=== PATIENT | female | born 1950 | race Caucasian/White ===

== ENCOUNTER 2023-04-19 00:06 | Inpatient (IN) | payer MEDICARE, OTHER, SELFPAY ==
[2023-04-18 21:59] VITALS: BMI 15.0
[2023-04-18 22:09] VITALS: BP 128/93
--- NOTE | 2023-04-18 22:37 | ED.GENMED ---
History of Present Illness
General
Chief Complaint: Breathing Problem
Source: patient and family
Exam Limitations: clinical condition and altered mental status
Time Seen by Provider: 04/18/23 22:20
Nursing documentation reviewed up to this point in time: agreed with
Travel History
Have you had any contact with someone who has COVID-19?: No
Do you have any symptoms of coronavirus? Fever > 100 degrees, chills, cough, shortness of breath, sore throat, loss of taste or smell, muscle aches, or headache?: No
History of Present Illness
History of Present Illness:
72-year-old female from [facility] facility presents with cough shortness of breath decreased p.o. intake pulse ox 90% on room air apparently was agitated earlier given Ativan, here she is lethargic arousable audibly wheezing companied by her
daughter is offering history has been admitted to [facility] for about 10 days previously sent to [facility]
Past History
Past History
ED Past Medical History: COPD and Other (Rheumatoid arthritis on Embrel)
ED Past Surgical History: and Orthopedic
Social History
Tobacco: Former smoker
Alcohol: None
Drug: None
Living: alone
Review of Systems
Review of Systems
Allergies reviewed?: Yes
Unable to obtain full review of systems at this time due to: due to acuity
Other source history: family
All Other Systems: Not applicable
Phy Exam
Physical Exam
Physical Exam:
Physical Exam
General: Elderly female lethargic audibly wheeze
Neck: Dry lip
Heart: Tachycardia
Lungs: Wheeze fair air movement
Abdomen: Nontender
Neuro: Lethargic localize the pain.
Skin: no rash
Psychiatric: Unable to assess
Extremities: no edema.
Scores
Heart Failure Risk
Heart Failure Risk Score: Not Applicable
Course
Orders/Labs/Results
Orders:
Orders
04/18/23 22:08
EKG- Treatment ONCE
04/18/23 22:35
Cardiac Monitoring- Treatment ONCE
IV Insert/Care/Rem.- Treatment PRN
0.9% Sodium Chloride 250 ml [Nss] 250 ml IV BOLUS
Dexamethasone Sod Phosphate [Decadron] 10 mg IV NOW STA
Ipratropium/Albuterol Sulfate [Duoneb] 3 ml INHALATION R NOW ONE
Pulse Ox/cont/shift [RESP] Stat
Quantity: 1
04/18/23 22:36
CR Chest Portable - 1 View Urgent
Comment:
Reason For Exam: sob
Reason Study Needs to be Portable: Unable to Transport
04/18/23 22:39
COVID-19 Antigen Urgent
Source: Nasal Swab
Complete Blood Count/With Diff Urgent
Comprehensive Metabolic Panel Urgent
Troponin I Urgent
Influenza A+B Rapid Molecular Urgent
STAR Source: Nasal Swab
Specimen Description:
04/18/23 23:05
NT-proBNP Urgent
Abnormal Lab Results
04/18/23
22:39
MCV 80.9 L fL
(81.0-99.0)
RDW 15.1 H %
(11.5-14.5)
Absolute Lymphs (auto) 0.8 L 10^3/uL
(1.2-3.4)
Absolute Monos (auto) 0.8 H 10^3/uL
(0.1-0.6)
Neutrophils % 77.6 H %
(42.2-75.2)
Lymphocytes % 11.1 L %
(20.5-51.1)
Monocytes % 10.2 H %
(1.7-9.3)
Sodium 133 L mmol/L
(135-145)
BUN 23 H mg/dl
(7-17)
Creatinine 0.4 L mg/dL
(0.6-1.0)
Alkaline Phosphatase 208 H U/L
(38-126)
04/18/23 22:39
04/18/23 22:39
Vital Signs
Initial and Last Documented VS:
Initial Vital Signs
Temp Pulse Resp BP Pulse Ox
98.2 F 95 25 128/93 94
04/18/23 22:09 04/18/23 22:09 04/18/23 22:09 04/18/23 22:09 04/18/23 22:09
Last Documented Vital Signs
Temp Pulse Resp BP Pulse Ox
97.7 F 86 16 121/79 95
04/21/23 14:52 04/21/23 19:38 04/21/23 19:38 04/21/23 18:14 04/21/23 19:38
MDM/Problems Addressed
Differential Diagnosis Includes:
COPD pneumonia heart failure pneumothorax overmedication hypercarbia
MDM/Problems Addressed:
Shortness of breath
Chronic conditions affecting care: COPD
Acute Exacerbation and/or Progression of Chronic Illness: COPD
*Pulse Oximetry
Patient hypoxic: yes
*EKG
Interpreted by ED Provider?: Yes
Interpretation: abnormal
Heart Rate: 110
Rate: normal
Ischemia: non-specific ST changes
*Cable Tool Operator Interpretation
Rate: tachycardiac
Interpretation: normal
Heart Rate: 104
Rhythm: sinus
*Critical Care Note
Total Time (30-74mins, 75-104mins- exclusive of procedures): 15
ED Attending Note
-
Portions of this chart may have been created with voice recognition software.� Occasional wrong word or��sound alike� substitutions may have occurred due to the inherent limitations of voice recognition software.
Discharge Plan
Departure
Patient Disposition: Admit
Date of Disposition: 04/18/23
Time of Disposition: 23:46
Admit to: Med/Surg
Presentation/result/management discussed w/ accepting MD/DO: Hospitalist
Patient with high blood pressure during this ER visit?: No
Condition: Fair
Covid-19: Not Applicable
Discharge Problem:
COPD exacerbation, Acute hypoxic respiratory failure, Moderate protein-calorie malnutrition, Delirium due to known physiological condition
Interventions
Interventions:
*Risk Screen - Suicide Last Done: 04/19/23 02:03
*General Assessment Last Done: 04/18/23 22:09
*Neglect/Abuse Screening Last Done: 04/18/23 22:09
ED- Fall Risk Assessment Last Done: 04/18/23 23:47
*ED COVID-19 Vaccine History Last Done: 04/19/23 00:02
*Nursing Disposition Last Done: 04/19/23 01:04
ED- Cardiac Assessment Last Done: 04/18/23 23:20
ED- Pulmonary Assessment Last Done: 04/18/23 23:20
Discharge Date and Time
Discharge Date/Time: 04/19/23 01:04
[2023-04-18 22:46] LABS: % Basophils 0.3 % (0-2); % Eosinophils 0.5 % (0-6); % Immature Granulocytes 0.3 % (0-0.5); % Lymphocytes 11.1 % (20.5-51.1); % Monocytes 10.2 % (1.7-9.3); % Neutrophils 77.6 % (42.2-75.2); Absolute Lymphocytes 0.8 10^3/uL (1.2-3.4); Absolute Monocytes 0.8 10^3/uL (0.1-0.6); Absolute Neutrophils 5.9 10^3/uL (1.4-6.5); Hematocrit 41.1 % (37.0-47.0); Hemoglobin 13.7 g/dL (12.0-16.0); Mean Corp Hgb Conc. 33.3 g/dL (33.0-37.0); Mean Corpuscular Volume 80.9 fL (81.0-99.0); Mean Platelet Volume 9.1 fL (7.4-10.4); Nucleated Red Blood Cells % 0 %; Platelet Count 361 10^3/uL (130-400); Red Blood Cell Count 5.08 10^6/uL (4.20-5.40); Red Cell Dist. Width 15.1 % (11.5-14.5); White Blood Cell Count 7.6 10^3/uL (4.8-10.8)
[2023-04-18 23:00] LABS: ALT (SGPT) 24 U/L (0-35); AST (SGOT) 28 U/L (14-36); Albumin 3.8 g/dl (3.5-5.0); Alkaline Phosphatase 208 U/L (38-126); Blood Urea Nitrogen 23 mg/dl (7-17); COVID-19 Antigen Negative (Negative); Calcium 8.7 mg/dl (8.4-10.2); Carbon Dioxide 25 mmol/L (22-30); Chloride 102 mmol/L (98-107); Estimated Creatinine Clearance 45 ml/min; Glucose 98 mg/dl (70-99); Sodium 133 mmol/L (135-145); Total Bilirubin 0.5 mg/dl (0.2-1.3); Total Protein 6.9 g/dl (6.3-8.2); eGFR > 60.00
[2023-04-18] MEDS: DUONEB 3 ML INHALATION (23:02)
[2023-04-18] MEDS: DECADRON 10 MG IV (23:02)
[2023-04-18 23:07] LABS: Troponin I < 0.012 ng/ml
[2023-04-18] MEDS: NSS 250 IV (23:34)
[2023-04-18 23:36] LABS: NT-proBNP 120 pg/ml
[2023-04-19] VITALS (14 sets, daily range): BP systolic 96–156; BP diastolic 55–98; PULSE 92–93; O2SAT 93–97; BMI 15.8; BMI 15.6
--- NOTE | 2023-04-19 00:01 | HPS.HSE ---
Family Physician
-
Family Physician: Trell Gifford
Chief Complaint
-
cough and SoB. Poor POs and lethargy
History of Present Illness
72F fron [facility] , COPD, recent admission pw cough and SoB. Poor POs.
intake pulse ox 90% on room air apparently was agitated earlier given Ativan
At ER she is lethargic arousable plus audibly wheezing
Medical History
Past Medical History
Past Medical History: Reports COPD and Other (Rheumatoid arthritis on Embrel))
Past Surgical History: Reports Gynocological (C section ) and Orthopedic
Social History
Tobacco: Former Smoker
Alcohol: None
Drug: None
Family History
Family History: Not pertinent
Allergies / Home Medications
Allergies reflects when Allergies were last updated in [employer].
Home Medications with original date entered in [employer]
Allergy/Medication List:
Allergies
Allergy/AdvReac Type Severity Reaction Status Date / Time
No Known Allergies Allergy Verified 08/07/22 16:46
Home Medications
budesonide 160 mcg-glycopyr 9 mcg-formot 4.8 mcg/actuation HFA inhaler (Breztri Aerosphere) 2 inh inhalation R BID Lung/Breathing Issues 01/29/23
calcium carbonate 600 mg calcium (1,500 mg) tablet (Calcium) 1,200 mg PO DAILY Supplement 01/29/23
cevimeline 30 mg capsule (Evoxac) 1 cap PO HS PRN dry mouth 01/29/23
cholecalciferol (vitamin D3) 50 mcg (2,000 unit) tablet 50 mcg PO DAILY Supplement 01/29/23
magnesium 250 mg tablet 250 mg PO DAILY Supplement 01/29/23
ferrous sulfate 325 mg (65 mg iron) tablet,delayed release 325 mg PO DAILY supplement 03/25/23
polyethylene glycol 3350 17 gram oral powder packet (Miralax) 17 g PO DAILY PRN constipation 03/25/23
sennosides 8.6 mg tablet (senna) 17.2 mg PO DAILY PRN constipation 03/25/23
ibuprofen 400 mg tablet 400 mg PO Q6HPRN PRN mild pain #14 tabs 03/30/23
acetaminophen 325 mg tablet 650 mg PO Q6H PRN mild pain/temp>100 04/18/23
azithromycin 500 mg tablet 500 mg PO DAILY 04/18/23
bisacodyl 10 mg rectal suppository (Dulcolax (bisacodyl)) 10 mg RI DAILY PRN if mom ineffective 04/18/23
docusate sodium 100 mg capsule 100 mg PO BID 04/18/23
ipratropium 20 mcg-albuterol 100 mcg/actuation mist for inhalation (Combivent Respimat) 2 puff inhalation R Q6 PRN copd 04/18/23
lorazepam 0.5 mg tablet 0.5 mg PO HS 04/18/23
magnesium hydroxide 400 mg/5 mL oral suspension (Milk of Magnesia) 30 ml PO DAILY PRN if no bm x 3 days 04/18/23
prednisone 20 mg tablet 40 mg PO DAILY 04/18/23
sodium phosphates 19 gram-7 gram/118 mL enema (Fleet Enema) 118 ml RI DAILY PRN if dulcolax ineffective 04/18/23
tramadol 50 mg tablet 50 mg PO Q8H PRN moderate pain 04/18/23
Review of Systems
-
Constitutional: Reports No Symptoms
EENT: Reports No Symptoms
Respiratory: Reports See HPI
Cardiac: Reports No Symptoms
Abdomen/GI: Reports No Symptoms
: Reports No Symptoms
Musculoskeletal: Reports No Symptoms
Skin: Reports No Symptoms
Neurological: Reports No Symptoms
Endocrine: Reports No Symptoms
Hematologic/Lymphatic: Reports No Symptoms
Psych: Reports No Symptoms
Physical Exam
Vital Signs
Vital Signs
Temp Pulse Resp BP Pulse Ox
98.2 F 93 19 128/93 98
04/18/23 22:09 04/18/23 23:46 04/18/23 23:46 04/18/23 22:09 04/18/23 23:46
Physical Exam
General: Other (see below )
Laboratory Results
-
04/18/23 22:39
04/18/23 22:39
Laboratory Results
pH Cancelled 04/18/23 22:35
pCO2 Cancelled 04/18/23 22:35
pO2 Cancelled 04/18/23 22:35
HCO3 Cancelled 04/18/23 22:35
Total Bilirubin 0.5 mg/dl (0.2-1.3) 04/18/23 22:39
AST 28 U/L (14-36) 04/18/23 22:39
ALT 24 U/L (0-35) 04/18/23 22:39
Alkaline Phosphatase 208 U/L (38-126) H 04/18/23 22:39
Troponin I < 0.012 ng/ml 04/18/23 22:39
Data Reviewed
-
CT Scan: Other (pending )
Lab Data: Labs Reviewed by me
Old Records: Reviewed
Impression/Plan
-
Reviewed VS: afebrile tachypneic low 20s POx 94% --> 98 on 2 L NCO2
PE
Gen:looks chronically ill and malnourished
HEENT: no scleral icterus
Neck: supple
Lungs: symmetric AE, wheezes
Cor: ST, RRR S1 S2
Abdomen: soft NT NG
CADDIE SUPERVISOR: lethargic , arousable
MS: no edema
Psych: Normal mood and affect.
Data
unremarkable CBC
Na 133
CO2 25
nl Cr nl eGFR
NEG TPNI
proBNP 120
Pending ABG:
NEG Covid Ag
Pending final CXR report
Last hospitalist admission: 03/25/23 - 04/04/23
DC diagnoses:
Acute hypoxemic respiratory insufficiency due to acute chronic obstructive pulmonary disease exacerbation
Acute sacral fracture after a mechanical fall
Acute delirium/psychosis
Acute toxic encephalopathy due to steroids and narcotics
Secondary diagnoses:
Chronic T9 compression fracture
Reactive leukocytosis
Chronic anemia
Rheumatoid arthritis
Sjogren's syndrome
ASSESSMENT & PLAN
Lethargy suspect due to Ativan @ OSH
Eval for other etiology for lethargic TME
- pending ABG
- fall precaution
- NPO for now for aspiration precaution
- Nursing to screen for POs
AE COPD e with mild acute hypoxic RI
+ Wheeze on arrival per ER
- pending ABG
- IV Decadron 4mg q8h
- DuoNebs qid and PRN
- O2 to keep Pox > 93 %
- Pul consult
Recent Sacral fracture after a mechanical fall/old T9 compression fracture:
- Held ibuprofen alternated with tramadol due to AMS
Other problems:
Rheumatoid arthritis/Sjogren's syndrome: Follow-up with rheumatology as outpatient
DVT Px: LMWH
Code: DNR confirmed by daughter at bed side
IP TLM
[2023-04-19] MEDS: MORPHINE SULFATE 2 MG IV (00:09)
--- NOTE | 2023-04-19 02:10 | PTCARENOTE ---
Addendum entered by Zuleima Domingo RN 04/19/23 05:09:
Yohana woke up extremely restless, taking off gown and oxygen. Pt appeared more wheezy compared to earlier in the shift and in distress. Repositioned in bed, placed NC back in nose. Support given, coached pt on slowing her breathing. RT made aware
and provided duoneb. Pt appears more comfortable at this time. Re-oriented to surroundings and use of call bartholomew. Pt needs frequent reminders industrial relations commissioner bartholomew use.
Original Note:
Patient arrived to room 3352 around 0100. Transferred over to bed and placed on IMU tele monitor and continuous sp02. Sp02 >93% on 2L. CHG done. Pt is drowsy but arousable and becomes restless when woken up. Pt does not follow commands or opens
eyes. In no apparent distress, her respirations are even and unlabored. Left lateral foot with small abrasion and redness, skin is otherwise intact. Pt has large hemorrhoids and possibly rectal prolapse. Daughter, Elda, at bedside to answer any
questions; Elda is first contact and POA. States pt was admitted here for 10 days recently and sent to [facility] rehab and was supposed to be discharged from [facility] today. Last admission pt had delirium. Elda also reports pt has not been
eating and has not sleep well in the last month. All questions answered. Bed alarm set, call bartholomew within reach.
[2023-04-19 03:36] LABS: % Basophils 0.1 % (0-2); % Immature Granulocytes 0.1 % (0-0.5); % Lymphocytes 5.2 % (20.5-51.1); % Monocytes 1.9 % (1.7-9.3); % Neutrophils 92.7 % (42.2-75.2); Absolute Lymphocytes 0.4 10^3/uL (1.2-3.4); Absolute Monocytes 0.1 10^3/uL (0.1-0.6); Absolute Neutrophils 6.2 10^3/uL (1.4-6.5); Hematocrit 37.9 % (37.0-47.0); Hemoglobin 12.5 g/dL (12.0-16.0); Mean Corpuscular Hgb 26.9 pg (27.0-31.0); Mean Corpuscular Volume 81.7 fL (81.0-99.0); Mean Platelet Volume 8.8 fL (7.4-10.4); Nucleated Red Blood Cells % 0 %; Platelet Count 313 10^3/uL (130-400); Red Blood Cell Count 4.64 10^6/uL (4.20-5.40); White Blood Cell Count 6.7 10^3/uL (4.8-10.8)
[2023-04-19 03:37] LABS: Venous Blood Gas B.E. 0.5 mmol/L (-4 to +4); Venous Blood Gas HCO3 24.6 mmol/L (22-27); Venous Blood Gas pCO2 37 mmHg (35-48); Venous Blood Gas pH 7.43 (7.32-7.43); Venous Blood Gas pO2 165 mmHg (30-50)
[2023-04-19 03:47] LABS: Venous Blood Gas O2 Sat % 99.5 %
[2023-04-19 04:11] LABS: Blood Urea Nitrogen 22 mg/dl (7-17); Calcium 8.4 mg/dl (8.4-10.2); Carbon Dioxide 22 mmol/L (22-30); Chloride 104 mmol/L (98-107); Estimated Creatinine Clearance 43 ml/min; Glucose 137 mg/dl (70-99); Potassium 4.1 mmol/L (3.5-5.1); Sodium 136 mmol/L (135-145); eGFR > 60.00
[2023-04-19] MEDS: DUONEB 3 ML INH ×2 (04:44→11:44)
[2023-04-19] MEDS: DECADRON 4 MG IV (06:25)
[2023-04-19] MEDS: DUONEB INH ×2 (07:55→07:57)
--- NOTE | 2023-04-19 09:00 | CON.PUL ---
Consultation
Consultation Request
Date/Time Consultation Requested: 04-19-23
Date/Time Consultation Performed: 04-19-23
Requesting Provider: Hospitalist
Performing Provider: Dr Hopson
Reason for Consultation: dyspnea
Medical History
-
Chief Complaint: dyspnea
History of Present Illness:
Mrs Yohana Hoffman is a 72/W readm 04-18 from [place] with dyspnea, decreased oral intake, POx 90% RA and agitation. Given ativan earlier, at ER, lethargic but arousable, audible wheezing. Recently adm [facility] 03-25 to for mild AECOPD, responded to CS,
BDs, O2, sustained acute psychosis deemed secondary to CS in setting of baseline mild dementia, of note, recent fall seen at ER 03-23, R hip pain but no fracture identified on Xrays, d/c on tramadol, due to ongoing pain was seen by ortho during adm
and pelvis CT showed nondisplaced bilateral zone 1 sacral ala fracture and questionable impaction/compression S2 (rec wt bearing as tolerated, no need for surgery)
EMS report showed no signs of resp distress, POx 95% on RA at time of their evaluation
At time of visit on O2 2L, POx 95%, in no resp distress
Past Medical History
Past Medical History: Other (see A&P for PMH/PSH)
Social History
Tobacco: Former Smoker
Alcohol: None
Drug: None
Personal:
Living: With Family and Usp (currently at [place])
Employment: Not Employed
Family History
Family History: Reviewed & Not Pertinent
Allergies / Home Medications
Allergies
Allergy/AdvReac Type Severity Reaction Status Date / Time
No Known Allergies Allergy Verified 08/07/22 16:46
Home Medications
Medication Instructions Recorded Confirmed Last Taken Type
budesonide 160 mcg-glycopyr 9 2 inh inhalation R BID 01/29/23 04/18/23 Unknown History
mcg-formot 4.8 mcg/actuation HFA Lung/Breathing Issues
inhaler (Breztri Aerosphere)
calcium carbonate 600 mg calcium 1,200 mg PO DAILY Supplement 01/29/23 04/18/23 Unknown History
(1,500 mg) tablet (Calcium)
cevimeline 30 mg capsule (Evoxac) 1 cap PO HS PRN dry mouth 01/29/23 04/18/23 Unknown History
cholecalciferol (vitamin D3) 50 50 mcg PO DAILY Supplement 01/29/23 04/18/23 Unknown History
mcg (2,000 unit) tablet
magnesium 250 mg tablet 250 mg PO DAILY Supplement 01/29/23 04/18/23 Unknown History
ferrous sulfate 325 mg (65 mg 325 mg PO DAILY supplement 03/25/23 04/18/23 Unknown History
iron) tablet,delayed release
polyethylene glycol 3350 17 gram 17 g PO DAILY PRN constipation 03/25/23 04/18/23 Unknown History
oral powder packet (Miralax)
sennosides 8.6 mg tablet (senna) 17.2 mg PO DAILY PRN constipation 03/25/23 04/18/23 Unknown History
ibuprofen 400 mg tablet 400 mg PO Q6HPRN PRN mild pain #14 03/30/23 04/18/23 Unknown Rx
tabs
acetaminophen 325 mg tablet 650 mg PO Q6H PRN mild 04/18/23 04/18/23 Unknown History
pain/temp>100
azithromycin 500 mg tablet 500 mg PO DAILY 04/18/23 04/18/23 Unknown History
bisacodyl 10 mg rectal suppository 10 mg MA DAILY PRN if mom 04/18/23 04/18/23 Unknown History
(Dulcolax (bisacodyl)) ineffective
docusate sodium 100 mg capsule 100 mg PO BID 04/18/23 04/18/23 Unknown History
ipratropium 20 mcg-albuterol 100 2 puff inhalation R Q6 PRN copd 04/18/23 04/18/23 Unknown History
mcg/actuation mist for inhalation
(Combivent Respimat)
lorazepam 0.5 mg tablet 0.5 mg PO HS 04/18/23 04/18/23 Unknown History
magnesium hydroxide 400 mg/5 mL 30 ml PO DAILY PRN if no bm x 3 04/18/23 04/18/23 Unknown History
oral suspension (Milk of Magnesia) days
prednisone 20 mg tablet 40 mg PO DAILY 04/18/23 04/18/23 Unknown History
sodium phosphates 19 gram-7 118 ml MA DAILY PRN if dulcolax 04/18/23 04/18/23 Unknown History
gram/118 mL enema (Fleet Enema) ineffective
tramadol 50 mg tablet 50 mg PO Q8H PRN moderate pain 04/18/23 04/18/23 Unknown History
Review of Systems
-
Unable to Obtain full review of systems at this time due to: Other (mildly disoriented)
History Source: Patient
All other systems: Negative unless noted
Respiratory: Cough (n) and Trouble Breathing
Musculoskeletal: Other (back pain)
Vitals / Labs / Diagnostic Testing
Vital Signs
Temp Pulse Resp BP Pulse Ox
98 F 86 19 132/66 97
04/19/23 07:30 04/19/23 06:15 04/19/23 06:15 04/19/23 06:00 04/19/23 06:15
Lab Data
04/19/23 03:20
04/19/23 03:20
Laboratory Results
04/18/23
22:35
pH Cancelled
pCO2 Cancelled
pO2 Cancelled
HCO3 Cancelled
O2 Delivery Level Cancelled
Microbiology
04/18/23 22:39 Nasal Swab Influenza Types A & B (BRENDA) - Final
Negative for Influenza A & B, NAAT
Negative results must be combined with clinical observations
and patient history.
Nucleic Acid Amplification test (NAAT)performed on the
[employer] platform.
Diagnostic Testing:
Physical Exam
-
HEENT: Normocephalic and Moist Mucous Membranes
Cardiovascular: Regular Rhythm, Murmur (n), Peripheral Edema, Calf Tenderness and JVD
Respiratory: Clear and Non-Labored Respirations
GI: Soft, Non Distended and Non Tender
Neurology: Awake, Oriented (partially) and No Motor Deficits
Skin: Dry
General: Respiratory Distress (n)
Assessment
-
Assessment:
Mrs Yohana Hoffman is a 72/W readm 04-18 from [place] with dyspnea, decreased oral intake, POx 90% RA and agitation. Given ativan earlier, at ER, lethargic but arousable, audible wheezing. Recently adm 03-25 to for mild AECOPD, responded to CS,
BDs, O2, sustained acute psychosis deemed secondary to CS in setting of baseline mild dementia, of note, recent fall seen at ER 03-23, R hip pain but no fracture identified on Xrays, d/c on tramadol, due to ongoing pain was seen by ortho during adm
and pelvis CT showed nondisplaced bilateral zone 1 sacral ala fracture and questionable impaction/compression S2 (rec wt bearing as tolerated, no need for surgery)
Impression:
Acute respiratory failure
AECOPD, apparently mild
COVID/flu negative
Conditions GRINDER OUTSIDE DIAMETER:
AECOPD adm mid Mar 2023, also recent fall leading to nondisplaced bilateral zone 1 sacral ala fracture and questionable impaction/compression S2 (seen by ortho, rec wt bearing as tolerated, no surgery rec). Mild AECOPD responded to course of
steroids, BDs and O2 (O2 weaned off upon d/c). Sustained acute delirium/psychosis mostly due to CS though has baseline dementia with intermittent agitation and delirium at home per daughter's report
COPD, on breztri, combivent, DNs
Severe emphysema
RA on golimumab. Past use of etanercept (enbrel)
Sjogren syndrome: on cevimeline for xerostomia
OP on denosumab (prolia)
Mild dementia, intermittent agitation and delirium
C section x2
Carpal tunnel surgery
L JOSEFINA
TB exposure as a child
Former smoker: 1 ppd for 25 y, quit in 2013
Plan:
Continue O2 protocol
Currently on 2L, POx 98%
Asp precs
Appears in no resp distress, presents no cough during time of interview, no wheezing on auscultation
Able to speak in full sentences, mildly disoriented
EMS report showed no signs of resp distress, POx 95% on RA at time of their evaluation
Rec to d/c oral azithromycin
Rec to change dexam 4 mg IV q8 to prednisone short course as appears in no resp distress
Noted h/o steroid induced psychosis
Continue DNs, change to prn for now
Spiriva, symbicort (return to [facility] upon d/c)
Baseline mild dementia with intermittent delirium at home
Follow with Dr Barker on routine basis -last visit with Alysa Carvre in May 2021
Diagnostic tests:
CXR 04-18-23: portable, lordotic, no gross infiltrates, emphysematous jesus
Chest CTA 03-25-23
IMPRESSION:
1. SEVERE BILATERAL CENTRILOBULAR EMPHYSEMA.
2. Mild scarring in both lungs which appears unchanged.
3. Moderate calcific atherosclerotic plaque in the left coronary artery.
4. Small hiatal hernia.
5. Chronic superior endplate fracture of T9 with moderate loss of vertebral body height.
Outpatient PFTs:
[facility]:
Performed 05/2021
FEV1/FVC: 35 (79% predicted)
FEV1: 0.78L (47% predicted) --> 0.81L (48% predicted with BD, which is a +4% change)
FVC: 2.25L (108% predicted) --> 2.41L (114% predicted with BD, which is a +7% change)
T%
RV: 156%
DLco: 31%
VA: 76%
DLco/VA: 40%
[2023-04-19] MEDS: ZITHROMAX 500 MG PO (09:17)
[2023-04-19] MEDS: COLACE 100 MG PO (09:17)
[2023-04-19] MEDS: RISPERDAL M-TAB (ORALLY DISINTEGRATING) 1 MG PO (10:54)
--- NOTE | 2023-04-19 12:50 | PTCARENOTE ---
Pt initially drowsy but conversant, Aox1. Pt becoming more awake throughout the morning. Pt then setting off bed alarm, this RN found pt out of bed tangled in wires. Pt yelling at staff and throwing equipment- stating she is leaving. Able to de
escalate and re orient pt after some time. Helped back into bed. TT to Dr. Molina to notify him of situation, order received for one time dose of Risperdal- given as ordered, see MAR. Pt resting at this time.
--- NOTE | 2023-04-19 13:00 | CM ---
CM spoke with dtr/KRYSTIN Schroeder
Pt typically resides with her dtr in a guest home, 1 floor with 2 [place]
Prior to Feb 2023, pt was independent without any DMEs
Pt was at [facility] for rehab in Feb 2023
Pt recent admitted to in Mar of this year and dc to [facility], pt was still at SNF for rehab care
PCP- Bharati Hassan
Rx- [place]
Per dtr, plan is for return to home, does not want SNF on dc
She is hiring 24/7 caregivers and already in the works with a provider
Aware that VN and DMEs can be set up as needed
Discharge Disposition- home with VN, possible DME and 24/7 caregivers
--- NOTE | 2023-04-19 13:49 | W.PN.HOSP.TC ---
Today's Communication/Plan
-
continue steroids
Risperdal concentrate orderd
psych eval
Assessment / Plan
Assessment / Plan
1. COPD flare up
Acute hypoxic respite insufficiency
-Patient wheezing on exam in ER, continue to do so today as well
-Able to be weaned off of oxygen
-Patient have behavioral problems and was declining oral prednisone, switch back to IV Decadron 4 mg every 12 hours
-Continue nebulizer therapy
2. Mild dementia with behavioral problems
-Patient agitated and required remote sitter in place
-Was given Risperdal sublingual yesterday, provided liquid concentrate Risperdal today
-Psychiatry asked to follow and help
3. Bloating/dyspepsia
-Reported per daughter, maintained on gasonex/PPI
History of rheumatoid arthritis on golimumab
History of Sjogren's syndrome
Osteoporosis
History of left hip arthroplasty
Former smoker
DVT prophylax - lovenox
Full code
Anticipated Discharge: Within 24 hours
Subjective/Interval History
-
Date of Service: April 19, 2023
Patient was agitated overnight, resting comfortably right now
Not on oxygen
Objective Data
-
Labs:
Laboratory Results
04/19/23
03:20
WBC 6.7
Hgb 12.5
Hct 37.9
Plt Count 313
Sodium 136
Potassium 4.1
Chloride 104
Carbon Dioxide 22
BUN 22 H
Creatinine 0.4 L
Glucose 137 H
Calcium 8.4
Vital Signs:
Vital Signs
Temp Pulse Resp BP Pulse Ox
98.1 F 72 16 130/81 98
04/19/23 11:00 04/19/23 11:49 04/19/23 11:49 04/19/23 10:00 04/19/23 11:49
Review of Systems
-
Unable to obtain full review of systems at this time due to: Dementia
Physical Exam
-
General: No Apparent Distress
HEENT: Negative Oxygen
Respiratory: Rhonchi; Negative Wheezes
Cardiac: Regular Rhythm and S1/S2; Negative Murmur
GI: Soft, Nontender and Nondistended
Neuro: Awake, Alert and AO x 3
Psych: Calm
--- NOTE | 2023-04-19 15:45 | PTOTSP ---
Dysphagia Evaluation
Oral and pharyngeal stages of swallowing suspected to be grossly WFL based on clinical bedside swallowing evaluation completed this date. No signs concerning for aspiration observed.
Patient's family denied any known history of dysphagia. Patient does have risk factors (i.e., COPD, dementia). Chest x-ray without signs of PNA this admission.
Recommend:
1. Regular, Thin Liquids
2. General aspiration precautions including slow rate and breaks for breathing given COPD
3. Medications as best tolerated
4. No further dysphagia therapy warranted. Please reconsult as appropriate.
--- NOTE | 2023-04-19 16:50 | PTCARENOTE ---
Pt downgraded to med surg. Report to receiving RN. Transferred to 335-1 with belongings, daughter at bedside.
[2023-04-19] MEDS: ROBITUSSIN DM 10 ML PO (16:58)
[2023-04-19] MEDS: LOVENOX 30 MG SC (16:58)
[2023-04-19] MEDS: VENTOLIN NEBULES 2.5 MG INH ×2 (17:03→23:27)
[2023-04-19] MEDS: ADVAIR HFA 115/21 MCG INHALER INH (20:10)
[2023-04-19] MEDS: COLACE PO (20:55)
[2023-04-20] MEDS: MORPHINE SULFATE 1 MG IV (00:02)
[2023-04-20 07:00] VITALS: BP 131/78
[2023-04-20] MEDS: MIRALAX PO (07:56)
[2023-04-20] MEDS: COLACE PO (07:56)
[2023-04-20] MEDS: ADVAIR HFA 115/21 MCG INHALER 2 PUFF INH (08:00)
[2023-04-20] MEDS: RISPERDAL ORAL SOLUTION 1 MG PO (09:04)
[2023-04-20] MEDS: DECADRON 4 MG IV ×2 (11:07→19:51)
--- NOTE | 2023-04-20 11:12 | CM ---
Addendum entered by Yohana Collier 04/20/23 12:04:
Per Tania patient is accepted by [facility] and patient daughter is working with [employer] for 03/10 [employer]. CM will continue to follow for discharge planning needs.
Plan; home with ; [facility] and home health aides; will need to confirm [employer] agency
Original Note:
Patient known to [facility], pending per Tania from [facility].
[2023-04-20 11:49] VITALS: BP 116/69; PULSE 98; O2SAT 94
[2023-04-20] MEDS: PROTONIX 40 MG PO (12:24)
[2023-04-20] MEDS: ROBITUSSIN DM 10 ML PO ×2 (12:29→20:00)
[2023-04-20] MEDS: VENTOLIN NEBULES 2.5 MG INH (12:41)
--- NOTE | 2023-04-20 12:52 | CON.MD ---
Consultation - Medical
-
patient seen chart reviewed. daughter at bedside. the patient is a 72 year old woman known to me from prior evaluation. she was last seen by me about a month ago. at that time she had been admitted for copd exacerbation. she had periods of agitation
then as well and haldol was prescribed but this resolved quickly and when i saw her she was appropriately conversant. d says seroquel 12.5 mg used in the past for tem but a lot of sedation noted. she was dc to [facility]. d was very very unhappy
w her care and saw mom backsliding vis a vis respiratory function and patient was returned to . she did have period of agitation yesterday hence this consult. when i saw her today the patient was very pleasant and alert. Although quite frail and
a bit tachypneic, she engaged quite well with this procedure writer and her d in a three way conversation. the patient has very little in the way of psych hx except for periods of tme while here and some scattered hx of anxiety treated in the distant past
though not recently. sleep is fair but chart reports hx plms but neither d nor pt mentioned this today and i don't see rx for it. appetite depends on her physical condition. she said today she feels hungry and was reading the menu. there was
nothing today to suggest psychosis or si.
past psych hx see above. no hospitalizations
medical copd, sjogren's RA chronic lbbb hx sacral fx hld osteoporosis plmd copd.
substance abuse none
fh mother w depression
sh patient is one of six children. she herself had two d's who are very supportive of her. she will go to reside w one of her d after hospit. d arranging for in home care for mrs miranda
mse alert ox3 cooperative pleasant. frail appearance some tachypnea mood is good affect ok no si no psychosis intelligence average but some cognitive decline insight judgment at this moment seems adequate
dx tme resolved for the moment
plan discussed w d very small doses of risperdal need to monitor for exac of plms....if this ineffective would consider the seroquel but then would need to monitor re sedation. will check in on her tomorrrow.
--- NOTE | 2023-04-20 14:00 | W.PN.PUL3 ---
Today's Communication / Plan
-
Continue IV corticosteroids,Will try to minimize.
Start Pulmicort twice daily
Start DuoNebs 3 times a day
Doxycycline twice a day for 5 days
Mucinex
Not ready for discharge, will continue to follow
Assessment
-
Assessment:
Mrs Yohana Hoffman is a 72/W readm 04-18 from ID with dyspnea, decreased oral intake, POx 90% RA and agitation. Given ativan earlier, at ER, lethargic but arousable, audible wheezing. Recently adm 03-25 to for mild AECOPD, responded to CS,
BDs, O2, sustained acute psychosis deemed secondary to CS in setting of baseline mild dementia, of note, recent fall seen at ER 03-23, R hip pain but no fracture identified on Xrays, d/c on tramadol, due to ongoing pain was seen by ortho during adm
and pelvis CT showed nondisplaced bilateral zone 1 sacral ala fracture and questionable impaction/compression S2 (rec wt bearing as tolerated, no need for surgery)
Impression:
Acute respiratory failure
AECOPD, apparently mild
COVID/flu negative
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
AECOPD adm mid Mar 2023, also recent fall leading to nondisplaced bilateral zone 1 sacral ala fracture and questionable impaction/compression S2 (seen by ortho, rec wt bearing as tolerated, no surgery rec). Mild AECOPD responded to course of
steroids, BDs and O2 (O2 weaned off upon d/c). Sustained acute delirium/psychosis mostly due to CS though has baseline dementia with intermittent agitation and delirium at home per daughter's report
COPD, on breztri, combivent, DNs
Severe emphysema
RA on golimumab. Past use of etanercept (enbrel)
Sjogren syndrome: on cevimeline for xerostomia
OP on denosumab (prolia)
Mild dementia, intermittent agitation and delirium
C section x2
Carpal tunnel surgery
L JOSEFINA
TB exposure as a child
Former smoker: 1 ppd for 25 y, quit in 2013
Plan:
Currently off supplemental oxygen
Continues to report cough, chest congestion and wheezing.
Daughter is at the bedside: With ambulation significantly short of breath and congested.
Bronchospastic on exam 04/20/2023
No acute respiratory distress at rest.
Start oral doxycycline 100 mg twice a day for 5 days for bronchitis.(04/20/2023)
Continue dexamethasone 4 mg IV every 12. Patient has developed some TME -currently improved. On Risperdal. Hopefully can wean down steroids tomorrow.
Will try to minimize
Start DuoNebs 3 times a day
Start Pulmicort twice a day
Hold inhalers
--Hold for now
Spiriva, symbicort (return to [facility] upon d/c)
-
Baseline mild dementia with intermittent delirium at home
Dr. Lizama updated daughter at the bedside on 04/20/[address] Barker on routine basis -last visit with Alysa Carver in May 2021

Diagnostic tests:
CXR 04-18-23: portable, lordotic, no gross infiltrates, emphysematous jesus
Chest CTA 03-25-23
IMPRESSION:
1. SEVERE BILATERAL CENTRILOBULAR EMPHYSEMA.
2. Mild scarring in both lungs which appears unchanged.
3. Moderate calcific atherosclerotic plaque in the left coronary artery.
4. Small hiatal hernia.
5. Chronic superior endplate fracture of T9 with moderate loss of vertebral body height.
Outpatient PFTs:
[facility]:
Performed 05/2021
FEV1/FVC: 35 (79% predicted)
FEV1: 0.78L (47% predicted) --> 0.81L (48% predicted with BD, which is a +4% change)
FVC: 2.25L (108% predicted) --> 2.41L (114% predicted with BD, which is a +7% change)
T%
RV: 156%
DLco: 31%
VA: 76%
DLco/VA: 40%
Subjective Data
-
Date of Service:
Date of Service: April 20, 2023
Chief Complaint: Pulmonary Follow Up (Acute exacerbation of COPD)
Subjective:
Improved toxic metabolic encephalopathy-received some Risperdal.
Review of Systems
Cardiopulmonary: Dyspnea (none at rest)
GI: Abdominal Pain (n), Nausea (n) and Vomiting (n)
Neuro: Headache (n)
Objective Data
Data Reviewed
Vital Signs / I&O / Oxygen:
Vital Signs
Temp Pulse Resp BP Pulse Ox
97.5 F 74 18 131/78 99
04/20/23 07:00 04/20/23 12:42 04/20/23 12:42 04/20/23 07:00 04/20/23 12:42
Intake and Output
04/19/23 04/20/23 04/21/23
06:59 06:59 06:59
Intake Total 360 / 360
Balance 360 / 360
SaO2 99
Nasal Cannula flow liters per 2
minute
Physical Exam
General: Respiratory Distress (n) and Comfortable
HEENT: Normocephalic
Cardiovascular: S1-S2
Respiratory: Wheeze
GI: Soft and Non Distended
Neurology: Awake
Skin: Warm
Labs/Micro/Reports
Lab Data
04/19/23 03:20
04/19/23 03:20
Microbiology
04/19/23 01:23 Nose MRSA Screen - Final
No Methicillin Resistant Staphylococcus aureus isolated.
04/18/23 22:39 Nasal Swab Influenza Types A & B (BRENDA) - Final
Negative for Influenza A & B, NAAT
Negative results must be combined with clinical observations
and patient history.
Nucleic Acid Amplification test (NAAT)performed on the
[employer] platform.
[2023-04-20 15:00] VITALS: BP 118/74
[2023-04-20] MEDS: LOVENOX 30 MG SC (17:01)
[2023-04-20] MEDS: VIBRAMYCIN 100 MG PO (19:51)
[2023-04-20] MEDS: COLACE 100 MG PO (19:51)
[2023-04-20] MEDS: MUCINEX 600 MG PO (19:51)
[2023-04-20] MEDS: DUONEB 3 ML INH (20:06)
[2023-04-20] MEDS: PULMICORT 0.5 MG INH (20:06)
[2023-04-20 23:00] VITALS: BP 139/54
[2023-04-21 06:35] LABS: Blood Urea Nitrogen 14 mg/dl (7-17); Calcium 8.5 mg/dl (8.4-10.2); Carbon Dioxide 30 mmol/L (22-30); Chloride 104 mmol/L (98-107); Estimated Creatinine Clearance 42 ml/min; Glucose 103 mg/dl (70-99); Potassium 3.9 mmol/L (3.5-5.1); Sodium 136 mmol/L (135-145); eGFR > 60.00
--- NOTE | 2023-04-21 07:45 | PN.CDI ---
CDI
- -
CDI:
Physician Documentation Request
Admit Date: 04/19/23 00:06
Dear Doctor Jesse,
Please review the following and provide your response in the progress notes.
Clinical Indicators:
BMI: 15.6
< 18.5
[employer], 04/19
#Consulted for poor po intake + BMI screen.
#CBW: 72 lb BMI 15.6 underweight range 04/19; 80 lb 02/02; 81 lb 08/07.
#...Significant weight loss of ~10% x 3 months.
#...Pt reports UBW of 97lb ~1 year ago. Significant weight loss of 25.8% x 1 year.
#NFPE: pt with severe muscle and fat loss.
#Per ASPEN/AND guidelines, pt meets for severe malnutrition
#...as evidenced by <50% intake est needs x > 1 month,
#...<75% intake est needs x > 3 months, 10% weight loss x 3 months,
#...25.8% weight loss x 1 year, severe fat loss, severe muscle loss.
#Etiology likely combination of chronic illness and social circumstances (no food at adult daycare).
Severe protein calorie malnutrition chronic illness and social/enviromental circumstances
Subcutaneous Fat: Loss of fat overt orbital, tricep, rib cage
Muscle Loss: Loss of muscle over temporal, clavical, pectoralis, deltoids, osseous
Please provide in the progress notes, additional specificity regarding the severity of the malnutrition:
Severe Protein Calorie Malnutrition of chronic illness and social/enviromental circumstances
Other (please specify)
Unable to determine
[place] Criteria (ACP Hospitalist 2017)
2 or more criteria must be present for either
non severe or severe malnutrition
Note that the criteria differs related to the
presence of an acute or chronic illness
Chronic Illness
Energy Intake Non Severe: <75% for >1 month
Severe: <75% for >1 month
Weight Loss Non Severe: 5% over 1 month
7.5% over 3 months
10% over 6 months
20% over 1 year
Severe: >5% over 1 month
>7.5% over 3 months
>10% over 6 months
>20% over 1 year
Body Fat Non Severe: Mild Loss
Severe: Severe Loss
Muscle Mass Non Severe: Mild Loss
Severe: Severe Loss
Additional criteria that can be used to Determine if Mild, Moderate, or Severe Malnutrition (Merck Manual 2018)
Mild Moderate Severe
BMI <18.5 <17 <16
Use of terms such as suspected, likely, concern for, or probable (associated with a specific diagnosis that is being evaluated, monitored, or treated as if it exists) are acceptable and can be coded in the inpatient setting, when documented at the
time of discharge.
Thank you,
Rosetta Campbell RN BSN CCDS
CDI Specialist
please contact via tiger text
Please use your independent medical judgment in providing your response.
[2023-04-21] MEDS: DUONEB 3 ML INH ×3 (07:49→19:33)
[2023-04-21] MEDS: PULMICORT 0.5 MG INH ×2 (07:49→19:33)
[2023-04-21] MEDS: MIRALAX 17 GRAMS PO (08:40)
[2023-04-21] MEDS: VIBRAMYCIN 100 MG PO ×2 (08:40→21:52)
[2023-04-21] MEDS: COLACE 100 MG PO ×2 (08:40→21:53)
[2023-04-21] MEDS: PROTONIX 40 MG PO (08:40)
[2023-04-21] MEDS: MUCINEX 600 MG PO ×2 (08:40→21:53)
[2023-04-21] MEDS: DECADRON 4 MG IV (08:41)
--- NOTE | 2023-04-21 10:03 | W.PN.UPDATE ---
Update Note
Progress Note Update
patient seen chart reviewed. spoke with nursing. mrs miranda reports she feels better today. she was able to sleep and rest and credits those two factors . she has not required prn's . at this point i suspect mental status is at her baseline
comparing to how i saw her at the end of her previous stay. psych will sign off. there is a prn for risperdal to be used only if severe agitation in the context ot tmr/delirium.
--- NOTE | 2023-04-21 10:17 | CM ---
Addendum entered by Abbi Negron 04/21/23 11:27:
[facility] by [facility]
[place] office
FAX # [phone]
Addendum entered by Abbi Negron 04/21/23 10:34:
Referral for resumption of [facility] submitted via [facility]; [facility] liaison notified via phone
Original Note:
Plan: discharge to home tomorrow with home health services from [facility]
Per daughter, home health aides will be in place to care for mother
Daughter will provide transport home
[2023-04-21 10:24] VITALS: BP 134/52
--- NOTE | 2023-04-21 12:47 | W.PN.HOSP.TC ---
Addendum entered and electronically signed by Oliver Molina MD 04/21/23 13:15:
Add on to diagnosis list
Severe Protein Calorie Malnutrition of chronic illness and social/enviromental circumstances
Original Note:
Today's Communication/Plan
-
d/c home tomorrow
Assessment / Plan
Assessment / Plan
1. COPD flare up - Improved
Acute hypoxic respite insufficiency - Resolved
-Patient wheezing on exam in ER, continue to do so today as well
-Able to be weaned off of oxygen
-Patient have behavioral problems and was declining oral prednisone, switch back to IV Decadron 4 mg every 12 hours
-Continue nebulizer therapy
2. Mild dementia with behavioral problems
-Patient agitation has significantly improved and much more controlled with as needed Risperdal
-Patient pleasant and able to talk about her past experience
-Psychiatry help appreciated
3. Bloating/dyspepsia
-Reported per daughter, maintained on gasonex/PPI
History of rheumatoid arthritis on golimumab
History of Sjogren's syndrome
Osteoporosis
History of left hip arthroplasty
Former smoker
DVT prophylax - lovenox
Full code
04/21 Case discussed with daughter over the phone.
Anticipated Discharge: Within 24 hours
Subjective/Interval History
-
Date of Service: April 21, 2023
patient resting comfortably
denies of having sob
no acute issues reported in night
Objective Data
-
Labs:
Laboratory Results
04/21/23
05:28
Sodium 136
Potassium 3.9
Chloride 104
Carbon Dioxide 30
BUN 14
Creatinine 0.4 L
Glucose 103 H
Calcium 8.5
Vital Signs:
Vital Signs
Temp Pulse Resp BP Pulse Ox
97.5 F 90 18 134/52 96
04/21/23 10:24 04/21/23 10:24 04/21/23 10:24 04/21/23 10:24 04/21/23 10:24
I&O
04/20/23 04/21/23 04/22/23
06:59 06:59 06:59
Intake Total 360 / 360 200 / 200 240 / 240
Balance 360 / 360 200 / 200 240 / 240
Review of Systems
-
Respiratory: Reports No Symptoms
Cardiac: Reports No Symptoms
Abdomen/GI: Reports No Symptoms
Physical Exam
-
General: No Apparent Distress
HEENT: Negative Oxygen
Respiratory: Rhonchi; Negative Wheezes
Cardiac: Regular Rhythm and S1/S2; Negative Murmur
GI: Soft, Nontender and Nondistended
Neuro: Awake and Alert
Psych: Calm
--- NOTE | 2023-04-21 12:58 | W.PN.PUL3 ---
Today's Communication / Plan
-
Transition to prednisone
Cont.nebs for now, restart inhalers upon discharge
Cont. Doxyciclyne
From the pulmonary perspective, hopefully can be discharged in the next 24 to 48 hours
Assessment
-
Assessment:
Mrs Yohana Hoffman is a 72/W readm 04-18 from [place] with dyspnea, decreased oral intake, POx 90% RA and agitation. Given ativan earlier, at ER, lethargic but arousable, audible wheezing. Recently adm 03-25 to for mild AECOPD, responded to CS,
BDs, O2, sustained acute psychosis deemed secondary to CS in setting of baseline mild dementia, of note, recent fall seen at ER 03-23, R hip pain but no fracture identified on Xrays, d/c on tramadol, due to ongoing pain was seen by ortho during adm
and pelvis CT showed nondisplaced bilateral zone 1 sacral ala fracture and questionable impaction/compression S2 (rec wt bearing as tolerated, no need for surgery)
Impression:
Acute respiratory failure
AECOPD, apparently mild
COVID/flu negative
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
AECOPD adm mid Mar 2023, also recent fall leading to nondisplaced bilateral zone 1 sacral ala fracture and questionable impaction/compression S2 (seen by ortho, rec wt bearing as tolerated, no surgery rec). Mild AECOPD responded to course of
steroids, BDs and O2 (O2 weaned off upon d/c). Sustained acute delirium/psychosis mostly due to CS though has baseline dementia with intermittent agitation and delirium at home per daughter's report
COPD, on breztri, combivent, DNs
Severe emphysema
RA on golimumab. Past use of etanercept (enbrel)
Sjogren syndrome: on cevimeline for xerostomia
OP on denosumab (prolia)
Mild dementia, intermittent agitation and delirium
C section x2
Carpal tunnel surgery
L JOSEFINA
TB exposure as a child
Former smoker: 1 ppd for 25 y, quit in 2013
Plan:
-
Currently off supplemental oxygen
Bronchospasm significantly improved today 04/21/2023
Patient feels better
-
Bronchospastic on exam 04/20/2023-clinically improved to 12/01/2023.
No acute respiratory distress at rest.
Continue with current care:
continue doxycycline 100 mg twice a day for 5 days for bronchitis.(04/20/2023-04/24/2023)
DC Dexamethasone, transitioned to prednisone 30mg PO and taper by 10mg every 48hr to off.
cont. DuoNebs 3 times a day-while in the hospital
cont. Pulmicort twice a day-while in the hospital
Hold inhalers
Spiriva, symbicort (return to [facility] upon d/c)
-
Baseline mild dementia with intermittent delirium at home, improved.
Dr. Lizama updated daughter at the bedside on 04/20/[address] Barker on routine basis -last visit with Alysa Carver in May 2021
-
Follow-up from the pulmonary perspective hopefully can be discharged in the next 24 to 48 hours.

Diagnostic tests:
CXR 04-18-23: portable, lordotic, no gross infiltrates, emphysematous jesus
Chest CTA 03-25-23
IMPRESSION:
1. SEVERE BILATERAL CENTRILOBULAR EMPHYSEMA.
2. Mild scarring in both lungs which appears unchanged.
3. Moderate calcific atherosclerotic plaque in the left coronary artery.
4. Small hiatal hernia.
5. Chronic superior endplate fracture of T9 with moderate loss of vertebral body height.
Outpatient PFTs:
[facility]:
Performed 05/2021
FEV1/FVC: 35 (79% predicted)
FEV1: 0.78L (47% predicted) --> 0.81L (48% predicted with BD, which is a +4% change)
FVC: 2.25L (108% predicted) --> 2.41L (114% predicted with BD, which is a +7% change)
T%
RV: 156%
DLco: 31%
VA: 76%
DLco/VA: 40%
Subjective Data
-
Date of Service:
Date of Service: April 21, 2023
Chief Complaint: Pulmonary Follow Up (Acute exacerbation of COPD)
Subjective:
Continues to report intermittent coughing
Shortness of breath with activity.
Chest congestion improving
Denies hemoptysis.
Review of Systems
General: Fever (n)
Cardiopulmonary: Dyspnea, Cough, Sputum Production and Wheezing (improved.)
Objective Data
Data Reviewed
Vital Signs / I&O / Oxygen:
Vital Signs
Temp Pulse Resp BP Pulse Ox
97.5 F 90 18 134/52 96
04/21/23 10:24 04/21/23 10:24 04/21/23 10:24 04/21/23 10:24 04/21/23 10:24
Intake and Output
04/20/23 04/21/23 04/22/23
06:59 06:59 06:59
Intake Total 360 / 360 200 / 200 240 / 240
Balance 360 / 360 200 / 200 240 / 240
SaO2 96
Nasal Cannula flow liters per 2
minute
Physical Exam
General: Respiratory Distress (n) and Comfortable
HEENT: Normocephalic
Cardiovascular: S1-S2
Respiratory: Wheeze
GI: Soft and Non Distended
Neurology: Awake
Skin: Warm
Labs/Micro/Reports
Lab Data
04/19/23 03:20
04/21/23 05:28
Microbiology
04/19/23 01:23 Nose MRSA Screen - Final
No Methicillin Resistant Staphylococcus aureus isolated.
04/18/23 22:39 Nasal Swab Influenza Types A & B (BRENDA) - Final
Negative for Influenza A & B, NAAT
Negative results must be combined with clinical observations
and patient history.
Nucleic Acid Amplification test (NAAT)performed on the
[employer] platform.
[2023-04-21] MEDS: DELTASONE 30 MG PO (14:25)
[2023-04-21 18:14] VITALS: BP 121/79
[2023-04-21] MEDS: LOVENOX 30 MG SC (18:27)
[2023-04-21] MEDS: RISPERDAL ORAL SOLUTION 0.25 MG PO (21:52)
[2023-04-21 23:00] VITALS: BP 146/84
[2023-04-22] MEDS: MOTRIN 200 MG PO (04:30)
[2023-04-22] MEDS: RISPERDAL 0.25 MG PO (04:31)
[2023-04-22 07:00] VITALS: BP 142/92
[2023-04-22] MEDS: DUONEB 3 ML INH (07:28)
[2023-04-22] MEDS: PULMICORT 0.5 MG INH (07:28)
[2023-04-22 07:42] LABS: Blood Urea Nitrogen 22 mg/dl (7-17); Calcium 8.4 mg/dl (8.4-10.2); Carbon Dioxide 26 mmol/L (22-30); Chloride 105 mmol/L (98-107); Estimated Creatinine Clearance 42 ml/min; Glucose 70 mg/dl (70-99); Potassium 3.4 mmol/L (3.5-5.1); Sodium 135 mmol/L (135-145); eGFR > 60.00
[2023-04-22] MEDS: MIRALAX 17 GRAMS PO (08:11)
[2023-04-22] MEDS: VIBRAMYCIN 100 MG PO (08:11)
[2023-04-22] MEDS: COLACE 100 MG PO (08:11)
[2023-04-22] MEDS: MUCINEX 600 MG PO (08:11)
[2023-04-22] MEDS: PROTONIX 40 MG PO (08:11)
[2023-04-22] MEDS: DELTASONE 30 MG PO (08:12)
--- NOTE | 2023-04-22 09:47 | W.PN.HOSP.TC ---
Today's Communication/Plan
-
d/c home with HH
Assessment / Plan
Assessment / Plan
1. COPD flare up - Improved
Acute hypoxic respite insufficiency - Resolved
-wheezing have significantly resolved. patient denies feeling dyspnic.
-Able to be weaned off of oxygen
-patient to transition to oral steroids at discharge today.
-Continue nebulizer therapy
2. Mild dementia with behavioral problems
-Patient agitation has significantly improved and much more controlled with as needed Risperdal
-Patient pleasant and able to talk about her past experience
-Psychiatry help appreciated
3. Bloating/dyspepsia
-Reported per daughter, maintained on gasonex/PPI
Severe Protein Calorie Malnutrition of chronic illness and social/enviromental circumstances
History of rheumatoid arthritis on golimumab
History of Sjogren's syndrome
Osteoporosis
History of left hip arthroplasty
Former smoker
DVT prophylax - lovenox
Full code
04/21 Case discussed with daughter over the phone.
More than 30 minutes spent in discharge including
Final examination of the patient
Summarizing hospital stay
Instructions for continuing care to all relevant caregivers
Preparation of discharge records, prescriptions, and referral forms
Total time spent (in minutes): 38 mins
Anticipated Discharge: Today
Subjective/Interval History
-
Date of Service: April 22, 2023
Resting comfortably in bed
No acute issues reported overnight
Objective Data
-
Labs:
Laboratory Results
04/22/23
06:41
Sodium 135
Potassium 3.4 L
Chloride 105
Carbon Dioxide 26
BUN 22 H
Creatinine 0.4 L
Glucose 70
Calcium 8.4
Vital Signs:
Vital Signs
Temp Pulse Resp BP Pulse Ox
97.8 F 88 16 142/92 95
04/22/23 07:00 04/22/23 07:30 04/22/23 07:30 04/22/23 07:00 04/22/23 07:30
I&O
04/21/23 04/22/23 04/23/23
06:59 06:59 06:59
Intake Total 200 / 200 600 / 600 240 / 240
Balance 200 / 200 600 / 600 240 / 240
Review of Systems
-
Unable to obtain full review of systems at this time due to: Dementia
Physical Exam
-
General: No Apparent Distress and Cachectic
HEENT: Negative Oxygen
Respiratory: Negative Wheezes
Cardiac: Regular Rhythm and S1/S2; Negative Murmur
GI: Soft, Nontender and Nondistended
Neuro: Awake, Alert and No Motor Deficits
Psych: Calm
[2023-04-22] MEDS: KCL 20 MEQ PO (10:02)
--- NOTE | 2023-04-22 10:37 | CM ---
Patient seen at bedside. Patient daughter also present and confirmed plan for discharge home with [facility] nursing. CM reviewed IMM and signed form placed on chart. CM will continue to follow for discharge planning needs.
Plan; home with daughter and [facility]
[2023-04-22] MEDS: VENTOLIN NEBULES 2.5 MG INH (11:31)
--- NOTE | 2023-04-22 12:45 | W.PN.PUL.V3 ---
Today's Communication / Plan
-
Prednisone taper
Wean FiO2
Increase activity
Outpatient pulmonary follow-up
Assessment
-
Assessment:
Mrs Yohana Hoffman is a 72/W readm 04-18 from [place] with dyspnea, decreased oral intake, POx 90% RA and agitation. Given ativan earlier, at ER, lethargic but arousable, audible wheezing. Recently adm 03-25 to for mild AECOPD, responded to CS,
BDs, O2, sustained acute psychosis deemed secondary to CS in setting of baseline mild dementia, of note, recent fall seen at ER 03-23, R hip pain but no fracture identified on Xrays, d/c on tramadol, due to ongoing pain was seen by ortho during adm
and pelvis CT showed nondisplaced bilateral zone 1 sacral ala fracture and questionable impaction/compression S2 (rec wt bearing as tolerated, no need for surgery)
Impression:
Acute respiratory failure
AECOPD, apparently mild
COVID/flu negative
Conditions LICENSE CLERK:
AECOPD adm mid Mar 2023, also recent fall leading to nondisplaced bilateral zone 1 sacral ala fracture and questionable impaction/compression S2 (seen by ortho, rec wt bearing as tolerated, no surgery rec). Mild AECOPD responded to course of
steroids, BDs and O2 (O2 weaned off upon d/c). Sustained acute delirium/psychosis mostly due to CS though has baseline dementia with intermittent agitation and delirium at home per daughter's report
COPD, on breztri, combivent, DNs
Severe emphysema
RA on golimumab. Past use of etanercept (enbrel)
Sjogren syndrome: on cevimeline for xerostomia
OP on denosumab (prolia)
Mild dementia, intermittent agitation and delirium
C section x2
Carpal tunnel surgery
L JOSEFINA
TB exposure as a child
Former smoker: 1 ppd for 25 y, quit in 2013
Plan:
Respiratory status continues to improve
Currently off supplemental oxygen-assess discharge supplemental oxygen needs
Aspiration precautions
Continue nebulizers
Changed to inhalers at time of discharge-Breztir and albuterol as needed
Prednisone taper
-
Baseline mild dementia with intermittent delirium at home, improved.
Dr. Lizama updated daughter at the bedside on 04/20/[address] Barker on routine basis -last visit with Alysa Carver in May 2021
Diagnostic tests:
CXR 04-18-23: portable, lordotic, no gross infiltrates, emphysematous jesus
Chest CTA 03-25-23
IMPRESSION:
1. SEVERE BILATERAL CENTRILOBULAR EMPHYSEMA.
2. Mild scarring in both lungs which appears unchanged.
3. Moderate calcific atherosclerotic plaque in the left coronary artery.
4. Small hiatal hernia.
5. Chronic superior endplate fracture of T9 with moderate loss of vertebral body height.
Outpatient PFTs:
[facility]:
Performed 05/2021
FEV1/FVC: 35 (79% predicted)
FEV1: 0.78L (47% predicted) --> 0.81L (48% predicted with BD, which is a +4% change)
FVC: 2.25L (108% predicted) --> 2.41L (114% predicted with BD, which is a +7% change)
T%
RV: 156%
DLco: 31%
VA: 76%
DLco/VA: 40%
Subjective Data
-
Date of Service:
Date of Service: April 22, 2023
Chief Complaint: Pulmonary Follow Up (Acute exacerbation of COPD) and Dyspnea Follow Up
Subjective:
Feels better, still some wheezing, less short of breath with exertion, no chest pain or abdominal pain
Review of Systems
General: Other (Per HPI)
Objective Data
Data Reviewed
Vital Signs / I&O:
Vital Signs
Temp Pulse Resp BP Pulse Ox
97.8 F 88 16 142/92 99
04/22/23 07:00 04/22/23 11:33 04/22/23 11:33 04/22/23 07:00 04/22/23 11:33
Intake and Output
04/21/23 04/22/23 04/23/23
06:59 06:59 06:59
Intake Total 200 / 200 600 / 600 240 / 240
Balance 200 / 200 600 / 600 240 / 240
SaO2: 99
Nasal Cannula flow liters per minute: 2
Physical Exam
General: Respiratory Distress (n) and Comfortable
HEENT: Normocephalic and Anicteric
Cardiovascular: S1-S2
Respiratory: Wheeze (Expiratory), Crackles (n), Rhonchi, Non-Labored Respirations, Accessory Resp Muscle Use (n) and Stridor
GI: Soft and Non Distended
Neurology: Awake, Alert and No Motor Deficits
Skin: Warm, Good Color, Cyanosis (n) and Jaundice (n)
Labs/Micro/Reports
Lab Data
04/19/23 03:20
04/22/23 06:41
Microbiology
04/19/23 01:23 Nose MRSA Screen - Final
No Methicillin Resistant Staphylococcus aureus isolated.
--- NOTE | 2023-04-22 13:50 | W.DCSUMMARY ---
Discharge Summary
Discharge Data
Date of Admission: 04/19/23
Date of Discharge: 04/22/23
-
Pending Results: No
Hospital Course
Discharging Physician : Dr Oliver Molina
Disposition : Home with home care
Primary care physician : Dr Contreras Palma
Principal Discharge diagnosis :
Chronic obstructive pulmonary disease flareup
Acute hypoxic respite insufficiency
Mild dementia with behavioral problems
Dyspepsia
Chronic Discharge diagnosis :
History of rheumatoid arthritis on golimumab
History of Sjogren's syndrome
Osteoporosis
History of left hip arthroplasty
Former smoker
Hospital Course :
Patient is a 72-year-old female with above-mentioned past medical history was brought into ER for new onset of cough shortness of breath and hypoxia. Patient was agitated and required to be provided Ativan in ER. ER evaluation suggestive of
patient having significant wheezing, chest x-ray was relatively clear. Patient was diagnosed to have COPD flareup and was started on steroids and nebulizer therapy. Pulmonology was involved in care and was following along during the
hospitalization. Patient also has history of dementia and was having behavioral problems during the hospitalization. Patient required to be provided Risperdal for this reason. Psychiatry was following along and recommended for patient to be
maintained on risperidone at discharge as well. Patient initially presented from alf facility although family preferred for patient to be discharged home with home health care. After appropriate arrangements patient was discharged home.
Important imaging findings :
None
Procedure findings :
None
Discharge Plan
-
Patient Disposition: Home with Home Care
Discharge Diagnosis/Procedures: COPD flare up, Hypoxic resp insuff
Diet: Regular
Activity: As tolerated
Driving Restrictions: No driving
Bathing Restrictions: OK to Shower
Referrals:
Sneha Palma PA-C [Family Provider] - in one week
Armando Barker MD [Active] - in two to three weeks (Dr. Szekely or SHARED SERVICES MANAGER-PFTs and 6-minute walk test)
Prescriptions:
New
simethicone 80 mg Tablet,Chewable
80 mg PO QIDPRN PRN (Reason: gas bloating) Qty: 120 0RF
risperidone 1 mg/mL Solution
0.25 mg PO [id number] PRN (Reason: agitation) Qty: 30 0RF
pantoprazole 40 mg Tablet,Delayed Release (Dr/Ec)
40 mg PO DAILY Qty: 30 0RF
prednisone 10 mg Tablet
See Rx Instructions .ROUTE .COMPLEX Qty: 30 0RF
Rx Instructions:
Take By Mouth:
40 mg daily x3 days, 30 mg daily x3 days,
20 mg daily x3 days, 10 mg daily x3 days.
Continued
cevimeline [Evoxac] 30 mg Capsule
1 cap PO HS PRN (Reason: dry mouth)
Patient Comments:
daughter states pt uses only occaisonally as it dries her up too much
cholecalciferol (vitamin D3) 50 mcg (2,000 unit) Tablet
50 mcg PO DAILY
polyethylene glycol 3350 [Miralax] 17 gram Powder In Packet
17 g PO DAILY PRN (Reason: constipation)
ferrous sulfate 325 mg (65 mg iron) tablet,delayed release (DR/EC)
325 mg PO DAILY
acetaminophen 325 mg Tablet
650 mg PO Q6H PRN (Reason: mild pain/temp>100)
bisacodyl [Dulcolax (bisacodyl)] 10 mg Suppository
10 mg MA DAILY PRN (Reason: if mom ineffective)
Fleet Enema 19-7 gram/118 mL Enema
118 ml MA DAILY PRN (Reason: if dulcolax ineffective)
docusate sodium 100 mg Capsule
100 mg PO BID
Combivent Respimat 20-100 mcg/actuation mist
2 puff INHALATION R Q6 PRN (Reason: copd)
Discontinued
calcium carbonate [Calcium 600] 600 mg calcium (1,500 mg) Tablet
1,200 mg PO DAILY
magnesium 250 mg Tablet
250 mg PO DAILY
Breztri Aerosphere 160-9-4.8 mcg/actuation Hfa Aerosol Inhaler
2 inh INHALATION R BID
sennosides [senna] 8.6 mg Tablet
17.2 mg PO DAILY PRN (Reason: constipation)
ibuprofen 400 mg Tablet
400 mg PO Q6HPRN PRN (Reason: mild pain) Qty: 14 0RF
prednisone 20 mg Tablet
40 mg PO DAILY
Rx Instructions:
for 5 days until 04/24/23
lorazepam 0.5 mg Tablet
0.5 mg PO HS
magnesium hydroxide [Milk of Magnesia] 400 mg/5 mL Suspension
30 ml PO DAILY PRN (Reason: if no bm x 3 days)
azithromycin 500 mg Tablet
500 mg PO DAILY
Rx Instructions:
for 3 days until 04/22/23
tramadol 50 mg tablet
50 mg PO Q8H PRN (Reason: moderate pain)
Discharge Orders:
Discharge Patient (As Directed); Ordered 04/22/23
Ordered By: Oliver Molina
Discharge Date and Time
Discharge Date/Time: 04/22/23 12:05
== END 2023-04-22 12:05 | disposition home health service (06) | DRG 190 ==
LOC: 3 WEST ACU 00:06
PROVIDERS: ADMITTING PHYSICIAN Internal Medicine; ATTENDING PHYSICIAN Hospitalist; CONSULT PHYSICIAN Psychiatry & Neurology Psychiatry; EMERGENCY PHYSICIAN Emergency Medicine; FAMILY PHYSICIAN Physician Assistant Medical; OTHER PHYSICIAN Internal Medicine Pulmonary Disease
DX: J43.2 Centrilobular emphysema (principal); E43 Unspecified severe protein-calorie malnutrition; F05 Delirium due to known physiological condition; M48.54XA Collapsed vertebra, not elsewhere classified, thoracic region, initial encounter for fracture; Z68.1 Body mass index [BMI] 19.9 or less, adult; F03.A11 Unspecified dementia, mild, with agitation; M06.9 Rheumatoid arthritis, unspecified; D64.9 Anemia, unspecified; R10.13 Epigastric pain; R09.02 Hypoxemia; J98.01 Acute bronchospasm; R06.89 Other abnormalities of breathing; K44.9 Diaphragmatic hernia without obstruction or gangrene; M35.00 Sjogren syndrome, unspecified; Z66 Do not resuscitate; Z20.1 Contact with and (suspected) exposure to tuberculosis; Z87.891 Personal history of nicotine dependence; Z11.52 Encounter for screening for COVID-19; Z96.642 Presence of left artificial hip joint
CPT/HCPCS: 71045; 74018; 80048; 80053; 82805; 83880; 84484; 85025; 87070; 87502; 87811; 92610; 93005; 94640; 96361; 96374; 96375; 97163; 97167; 97530; 99285

== ENCOUNTER 2023-07-18 21:07 | Inpatient (IN) | payer MEDICARE, OTHER, SELFPAY ==
[2023-07-18] VITALS (8 sets, daily range): BP systolic 130–168; BP diastolic 77–99; BMI 17.5; BMI 17.0
[2023-07-18] MEDS: DUONEB 3 ML INH (17:11)
[2023-07-18 17:23] LABS: % Basophils 0.1 % (0-2); % Immature Granulocytes 0.3 % (0-0.5); % Lymphocytes 8.9 % (20.5-51.1); % Monocytes 2.2 % (1.7-9.3); % Neutrophils 88.5 % (42.2-75.2); Absolute Lymphocytes 0.8 10^3/uL (1.2-3.4); Absolute Monocytes 0.2 10^3/uL (0.1-0.6); Absolute Neutrophils 8.2 10^3/uL (1.4-6.5); Hematocrit 43.2 % (37.0-47.0); Hemoglobin 14.5 g/dL (12.0-16.0); Mean Corp Hgb Conc. 33.6 g/dL (33.0-37.0); Mean Corpuscular Hgb 26.4 pg (27.0-31.0); Mean Corpuscular Volume 78.7 fL (81.0-99.0); Mean Platelet Volume 9.3 fL (7.4-10.4); Nucleated Red Blood Cells % 0 %; Platelet Count 317 10^3/uL (130-400); Red Blood Cell Count 5.49 10^6/uL (4.20-5.40); Red Cell Dist. Width 14.5 % (11.5-14.5); White Blood Cell Count 9.2 10^3/uL (4.8-10.8)
[2023-07-18 17:35] LABS: ALT (SGPT) 31 U/L (0-35); AST (SGOT) 30 U/L (14-36); Albumin 4.2 g/dl (3.5-5.0); Alkaline Phosphatase 109 U/L (38-126); Blood Urea Nitrogen 23 mg/dl (7-17); COVID-19 Antigen Negative (Negative); Calcium 10.9 mg/dl (8.4-10.2); Carbon Dioxide 31 mmol/L (22-30); Chloride 99 mmol/L (98-107); Estimated Creatinine Clearance 47 ml/min; Glucose 126 mg/dl (70-99); Potassium 2.9 mmol/L (3.5-5.1); Sodium 139 mmol/L (135-145); Total Bilirubin 0.6 mg/dl (0.2-1.3); Total Protein 7.7 g/dl (6.3-8.2); eGFR > 60.00
[2023-07-18 17:45] LABS: NT-proBNP 631 pg/ml; Troponin I < 0.012 ng/ml
[2023-07-18] MEDS: VENTOLIN NEBULES 10 MG INH (17:45)
--- NOTE | 2023-07-18 18:03 | ED.GENMED ---
History of Present Illness
General
Chief Complaint: Breathing Problem
Source: patient and family (Daughter)
Exam Limitations: none
Time Seen by Provider: 07/18/23 17:04
Nursing documentation reviewed up to this point in time: agreed with
Travel History
Have you had any contact with someone who has COVID-19?: No
Do you have any symptoms of coronavirus? Fever > 100 degrees, chills, cough, shortness of breath, sore throat, loss of taste or smell, muscle aches, or headache?: No
History of Present Illness
History of Present Illness:
The patient is a 73-year-old female with a past medical history of COPD who was just placed on nasal oxygen at home yesterday. She arrives with complaints of several days of shortness of breath and cough productive of thick white mucus. Her
daughter reports that her breathing has gradually gotten worse and worse. Her daughter reports that she was evaluated by her doctor last week and started on a course of doxycycline and prednisone. The patient denies chest pain but reports
significant shortness of breath. It is worse when she exerts herself.
Past History
Past History
ED Past Medical History: COPD and Other (Rheumatoid arthritis on Embrel)
ED Past Surgical History: and Orthopedic
Social History
Tobacco: Former smoker
Alcohol: None
Drug: None
Personal: Other
Living: alone
Employment: Other
Family History
Family History: Other
Review of Systems
Review of Systems
Allergies reviewed?: Yes
All Other Systems: ROS reviewed and negative except as documented in HPI and ROS
Constitutional: Reports no symptoms
EENT: Reports no symptoms
Respiratory: Reports trouble breathing
Cardiac: Reports no symptoms
ABD/GI: Reports no symptoms
: Reports no symptoms
Musculoskeletal: Reports no symptoms
Skin: Reports no symptoms
Neurological: Reports no symptoms
Endocrine: Reports no symptoms
Hematologic/Lymphatic: Reports no symptoms
Psychiatric: Reports no symptoms
Phy Exam
Physical Exam
Physical Exam:
Physical Exam
General: Patient arrives with moderate to severe shortness of breath but fully awake and alert
Neck: supple. no meningeal signs. normal psoterior pharynx
Heart: s1/s2 regular rate and rhythm,
Lungs: no acute respiratory distress. clear bilaterally
Abdomen: Significant work of breathing. Diminished breath sounds bilaterally. Wheezing bilaterally
Neuro: alert and oriented. no focal neurological deficits
Skin: no rash
Psychiatric: well kept. interactive and cooperative
Extremities: no edema. no calf tenderness. negative homans. good distal pulses
Scores
Heart Failure Risk
Heart Failure Risk Score: Not Applicable
Course
Orders/Labs/Results
Orders:
Orders
07/18/23 17:08
Electrocardiogram (*1) Urgent
Reason for Study: Other
Other Reason for Exam: Respiratory Distress
Cardiac Monitoring- Treatment ONCE
EKG- Treatment ONCE
IV Insert/Care/Rem.- Treatment PRN
CR Chest Portable - 1 View Urgent
Comment:
Reason For Exam: respiratory distress
Reason Study Needs to be Portable: Patient Unstable
O2 Therapy [RESP] Urgent
Titrate/Wean O2 to maintain O2 sat greater than (%): 93
Special Instructions: TO MAINTAIN CONTINUOUS O2 SATS >/= 93%
Pulse Ox/cont/shift [RESP] Urgent
Quantity: 1
Special Instructions: continuous pulse ox
07/18/23 17:09
Ipratropium/Albuterol Sulfate [Duoneb] 3 ml .ROUTE .[facility]
07/18/23 17:10
Influenza A+B Rapid Molecular Urgent
STAR Source: Nasal Swab
Specimen Description:
Date Specimen was Collected: 07/18/23
Time Specimen was Collected: 17:09
07/18/23 17:11
COVID-19 Antigen Urgent
Source: Nasal Swab
Complete Blood Count/With Diff Urgent
Comprehensive Metabolic Panel Urgent
NT-proBNP Urgent
Troponin I Urgent
Blood Culture Q30M
STAR Source: Blood/Venous
Specimen Description:
Comment: FROM SEPARATE SITES
Ipratropium/Albuterol Sulfate [Duoneb] 3 ml INH R NOW ONE
07/18/23 17:21
Albuterol Sulfate [Ventolin Nebules] 10 mg INH R NOW STA
07/18/23 17:45
Blood Culture Q30M
STAR Source: Blood/Venous
Specimen Description:
Comment: FROM SEPARATE SITES
07/18/23 18:08
Dexamethasone Sod Phosphate [Decadron] 10 mg IV NOW STA
Abnormal Lab Results
07/18/23
17:11
RBC 5.49 H 10^6/uL
(4.20-5.40)
MCV 78.7 L fL
(81.0-99.0)
MCH 26.4 L pg
(27.0-31.0)
Absolute Neuts (auto) 8.2 H 10^3/uL
(1.4-6.5)
Absolute Lymphs (auto) 0.8 L 10^3/uL
(1.2-3.4)
Neutrophils % 88.5 H %
(42.2-75.2)
Lymphocytes % 8.9 L %
(20.5-51.1)
Potassium 2.9 L mmol/L
(3.5-5.1)
Carbon Dioxide 31 H mmol/L
(22-30)
BUN 23 H mg/dl
(7-17)
Glucose 126 H mg/dl
(70-99)
Calcium 10.9 H mg/dl
(8.4-10.2)
07/18/23 17:11
07/18/23 17:11
Vital Signs
Initial and Last Documented VS:
Initial Vital Signs
Temp Pulse Resp BP Pulse Ox
97.7 F 76 20 163/97 85
07/18/23 16:47 07/18/23 16:47 07/18/23 16:47 07/18/23 16:47 07/18/23 16:47
Last Documented Vital Signs
Temp Pulse Resp BP Pulse Ox
97.7 F 75 20 168/99 96
07/18/23 16:47 07/18/23 17:16 07/18/23 17:16 07/18/23 17:16 07/18/23 17:16
MDM/Problems Addressed
Differential Diagnosis Includes:
Acute on chronic COPD, pneumonia, PE
MDM/Problems Addressed:
Patient presents with acute on chronic shortness of breath
Chronic conditions affecting care: COPD
Acute Exacerbation and/or Progression of Chronic Illness:
Patient's presentation likely represents acute on chronic shortness of breath and exacerbation of COPD
Acute Exacerbation and/or Progression of Chronic Illness: COPD
*Radiology
Radiology exam reviewed: preliminary read by ED provider (Chest x-ray read by me. No acute disease)
*Pulse Oximetry
Patient hypoxic: yes
*EKG
Interpreted by ED Provider?: Yes
Interpretation: abnormal
Comparison EKG: no changes
Rate: normal
Rhythm: sinus
Slinger: left axis deviation
Interval: normal interval
QRS Pattern: left bundle branch block and left vent hypertrophy
Ischemia: non-specific ST changes
*Supervisor Boat Outfitting Interpretation
Rate: normal
Interpretation: normal
Rhythm: sinus
*Critical Care Note
Total Time (30-74mins, 75-104mins- exclusive of procedures): 46 minutes
comment:
46 minutes critical care given to the patient occluding frequent reassessments of her respiratory effort, reviewing her EKG, counseling the patient and the family, reviewing prior medical records and reviewing blood work
Data Reviewed
Review of Other/Old Records Reveals: Discharge Summary (Discharge summary reviewed from 04/2023 when patient was admitted for COPD exacerbation)
Source: patient and family
ED Attending Note
-
Portions of this chart may have been created with voice recognition software.� Occasional wrong word or��sound alike� substitutions may have occurred due to the inherent limitations of voice recognition software.
Discharge Plan
Departure
Patient Disposition: Admit
Date of Disposition: 07/18/23
Time of Disposition: 19:53
Admit to: Telemetry
Presentation/result/management discussed w/ accepting MD/DO: Hospitalist
Patient with high blood pressure during this ER visit?: Yes
Condition: Fair
Covid-19: Negative COVID-19
Discharge Problem:
COPD exacerbation, Acute hypoxic respiratory failure
Prescriptions:
No Action
cholecalciferol (vitamin D3) 50 mcg (2,000 unit) Tablet
50 mcg PO DAILY
Combivent Respimat 20-100 mcg/actuation mist
1 puff INHALATION R Q4HPRN PRN (Reason: copd/sob)
calcium carbonate [Calcium 600] 600 mg calcium (1,500 mg) Tablet
600 mg PO DAILY
ibuprofen 200 mg Tablet
400 mg PO Q4HPRN PRN (Reason: mild pain)
loratadine 10 mg Tablet
10 mg PO DAILY PRN (Reason: allergies)
Prolia 60 mg/mL Syringe
60 mg SC [id number]
Simponi ARIA 12.5 mg/mL Solution
12.5 mg IV Q8W
Breztri Aerosphere 160-9-4.8 mcg/actuation Hfa Aerosol Inhaler
2 inh INHALATION R BID
risperidone 1 mg/mL solution
0.25 mg PO HS
prednisone 10 mg Tablet
10 mg PO DIRECTED
Patient Comments:
07/18/2023, filled on 07/13/2023.
Rx Instructions:
07/18/2023, 30 mg x 3 days; 20 mg x 3 days; 10 mg x 3 days.
budesonide 0.5 mg/2 mL Suspension For Nebulization
0.5 mg INHALATION R BID
doxycycline hyclate 100 mg Tablet
100 mg PO Q12H
Patient Comments:
07/18/2023, filled on 07/13/2023 and is instructed to take one tablet Q12H for 10 days.
formoterol fumarate 20 mcg/2 mL Solution For Nebulization
2 ml INHALATION R BID
Yupelri 175 mcg/3 mL Solution For Nebulization
175 mcg INHALATION R DAILY
Referrals:
NONE,* [Active] -
Interventions
Interventions:
*Risk Screen - Suicide Last Done: 07/18/23 16:47
*General Assessment Last Done: 07/18/23 16:47
*Neglect/Abuse Screening Last Done: 07/18/23 16:47
ED- Fall Risk Assessment Last Done: 07/18/23 17:14
ED- Cardiac Assessment Last Done: 07/18/23 17:14
ED- Pulmonary Assessment Last Done: 07/18/23 17:14
Discharge Date and Time
Print Language: CENTRAL AFRICAN
[2023-07-18] MEDS: DECADRON 10 MG IV (18:36)
--- NOTE | 2023-07-18 20:51 | HPS.HSE ---
Addendum entered and electronically signed by Francisco Apple MD 07/18/23 21:21:
Seen and examined by me independently in collaboration with the MATT Ibarra.
Past medical history/social history/medication/allergies reviewed.
Lab data and imaging data reviewed.
Patient with known history of COPD and having had a prior hospitalization this year for COPD flare presents with cough with productive phlegm which was green in color which is now clear and associated shortness of breath. She was treated with
doxycycline and oral prednisone with some improvement but remained short of breath so presented to the hospital. She is noted to be hypoxic requiring oxygen and also very bronchospastic requiring steroid treatments and nebulizers. She feels
improved. She is still bronchospastic. No acute respiratory distress currently. Completing full sentence. No use of accessory muscles of respiration.
No JVD/leg edema. Clinically doubt CHF and her BNP not elevated for her age. Chest x-ray interestingly raises concern for pulmonary edema including mention of curly B-lines. EKG shows normal sinus rhythm with a left bundle branch block which is
new. Troponins are negative. Will give the benefit of doubt and give her a dose of Lasix and see her progress. Check an echocardiogram.
Discussed with daughter at bedside
DNR and DNI
Original Note:
Family Physician
-
Family Physician: Sneha Palma
Chief Complaint
-
Cough and Shortness of Breath
History of Present Illness
This is 73 year old female who is a resident at [facility], with past medical history of COPD who presents due to worsening shortness of breath x 1 week sent over by PCP after appointment today. She saw [facility] on July 12 who started her on doxycycline and prednisone for COPD exacerbation which she is still taking. She notes some improvement in cough with phlegm that was originally green in nature, but is now white and thick. However, she continue
with increased shortness of breath. She was started on supplemental oxygen at her facility on Monday due to increased shortness of breath. She is overall fatigued due to shortness of breathe. She denies chest pain, fever, palpitation, or swelling
in her extremities. She follows with discotheque dancer at [facility] who recently changed her from inhalers to nebulizers due to concerns of inability to properly use the inhalers.
Medical History
Past Medical History
Past Medical History: Reports Other
Additional Past Medical History:
COPD
Dementia with behavioral disturbance
Rheumatoid Arthritis
Sjogren's Syndrome
Osteoporosis
Past Surgical History: Reports Other
Additional Past Surgical History:
Left JOSEFINA (01/23/23)
x 2
Carpal Tunnel Surgery
Foot Surgery
Social History
Tobacco: Non-smoker
Alcohol: None
Drug: None
Family History
Family History: Not pertinent
Allergies / Home Medications
Allergies reflects when Allergies were last updated in [facility].
Home Medications with original date entered in [facility]
Allergy/Medication List:
Allergies
Allergy/AdvReac Type Severity Reaction Status Date / Time
No Known Allergies Allergy Verified 08/07/22 16:46
Home Medications
cholecalciferol (vitamin D3) 50 mcg (2,000 unit) tablet 50 mcg PO DAILY Supplement 01/29/23
ipratropium 20 mcg-albuterol 100 mcg/actuation mist for inhalation (Combivent Respimat) 1 puff inhalation R Q4HPRN PRN copd/sob 04/18/23
budesonide 0.5 mg/2 mL suspension for nebulization 0.5 mg inhalation R BID 07/18/23
budesonide 160 mcg-glycopyr 9 mcg-formot 4.8 mcg/actuation HFA inhaler (Breztri Aerosphere) 2 inh inhalation R BID 07/18/23
calcium carbonate (Calcium 600) 600 mg PO DAILY 07/18/23
denosumab 60 mg/mL subcutaneous syringe (Prolia) 60 mg SC [id number] 07/18/23
doxycycline hyclate 100 mg tablet 100 mg PO Q12H 07/18/23
formoterol fumarate 20 mcg/2 mL solution for nebulization 2 ml inhalation R BID 07/18/23
golimumab 12.5 mg/mL intravenous solution (Simponi ARIA) 12.5 mg IV Q8W 07/18/23
ibuprofen 200 mg tablet 400 mg PO Q4HPRN PRN mild pain 07/18/23
loratadine 10 mg tablet 10 mg PO DAILY PRN allergies 07/18/23
prednisone 10 mg tablet 10 mg PO DIRECTED 07/18/23
revefenacin 175 mcg/3 mL solution for nebulization (Yupelri) 175 mcg inhalation R DAILY 07/18/23
risperidone 1 mg/mL oral solution 0.25 mg PO HS 07/18/23
Review of Systems
-
A 12 point ROS was completed and negative except as noted: Yes
Constitutional: Denies Fever or Chills
Respiratory: Reports See HPI
Cardiac: Denies Chest Pain or Palpitations
Physical Exam
Vital Signs
Vital Signs
Temp Pulse Resp BP Pulse Ox
97.7 F 88 18 144/96 94
07/18/23 16:47 07/18/23 20:15 07/18/23 20:15 07/18/23 20:00 07/18/23 20:15
Physical Exam
General: Comfortable and Conversant
HEENT: Anicteric, Moist mucous membranes and Oxygen (Nasal Cannula)
Respiratory: Wheezes (Late expiratory wheeze, heard mostly anteriorly) and Non Labored Respirations
Cardiac: S1/S2 and Regular Rhythm
GI: Soft and Non Tender
Rectal: Deferred by Provider
Musculoskeletal: No Clubbing, No Cyanosis and No Edema
Skin: Warm and Dry
Neuro: Awake, Alert and Nonfocal/grossly intact
Psych: Calm
Laboratory Results
-
07/18/23 17:11
07/18/23 17:11
Laboratory Results
Total Bilirubin 0.6 mg/dl (0.2-1.3) 07/18/23 17:11
AST 30 U/L (14-36) 07/18/23 17:11
ALT 31 U/L (0-35) 07/18/23 17:11
Alkaline Phosphatase 109 U/L (38-126) 07/18/23 17:11
Troponin I < 0.012 ng/ml 07/18/23 17:11
Data Reviewed
-
Diagnostic Radiology: Image Personally Visualized and interpreted
Lab Data: Labs Reviewed by me
Old Records: Reviewed
Impression/Plan
-
Acute Hypoxic Respiratory Insufficiency secondary to Acute COPD Exacerbation
-Continue supplemental oxygen
-Continue Decadron
-Continue Pulmicort neb and Duoneb
Dementia with behavioral disturbance
-Monitor for mood/behavior changes during hospitalization
-Continue Risperdal HS and add prn dose for increased agitation
-Per daughter patient does not respond well to Ativan or Haldol
Rheumatoid Arthritis
-Patient maintained on golimumab as outpatient
Hx Sjogren's Syndrome
DVT proph: Lovenox
Code Status: DNR
[2023-07-18] MEDS: VIBRAMYCIN 100 MG PO (23:04)
[2023-07-18] MEDS: LASIX 40 MG IV (23:05)
--- NOTE | 2023-07-18 23:28 | PTCARENOTE ---
2215 received patient to room 407-1, admission assessment completed to the best of ability. patient is confused and not oriented to place or time. patient agitated and not wanting any treatments or assessments. patient oriented to call bartholomew and
floor rountines, patient appears to understand but needs reinforcement.
[2023-07-18] MEDS: RISPERDAL ORAL SOLUTION 0.25 MG PO (23:44)
--- NOTE | 2023-07-18 23:58 | PTCARENOTE ---
0603 patient pulled iv out, patient currently agitated and confused, pulling tele monitor and o2 off. patient inst on need for both. patient can be pleasant and cooperative at times, will cont to attempt to reorient patient.
[2023-07-19] VITALS (8 sets, daily range): BP systolic 124–147; BP diastolic 79–94; PULSE 77; O2SAT 98; BMI 16.4
[2023-07-19] MEDS: DECADRON 4 MG IV ×2 (01:40→05:41)
[2023-07-19 04:31] LABS: Hematocrit 39.3 % (37.0-47.0); Hemoglobin 13.4 g/dL (12.0-16.0); Mean Corp Hgb Conc. 34.1 g/dL (33.0-37.0); Mean Corpuscular Hgb 26.6 pg (27.0-31.0); Mean Corpuscular Volume 78.1 fL (81.0-99.0); Mean Platelet Volume 9.3 fL (7.4-10.4); Platelet Count 243 10^3/uL (130-400); Red Blood Cell Count 5.03 10^6/uL (4.20-5.40); Red Cell Dist. Width 14.4 % (11.5-14.5); White Blood Cell Count 6.1 10^3/uL (4.8-10.8)
[2023-07-19 05:04] LABS: Blood Urea Nitrogen 24 mg/dl (7-17); Calcium 10.4 mg/dl (8.4-10.2); Carbon Dioxide 34 mmol/L (22-30); Chloride 97 mmol/L (98-107); Estimated Creatinine Clearance 45 ml/min; Glucose 155 mg/dl (70-99); Magnesium 2.1 mg/dl (1.6-2.3); Potassium 2.5 mmol/L (3.5-5.1); Sodium 140 mmol/L (135-145); eGFR > 60.00
--- NOTE | 2023-07-19 05:17 | W.PN.UPDATE ---
Update Note
Progress Note Update
RN notified FRONT DESK REPRESENTATIVE, k 2.5, will give kcl 40meq PO x1 Repeat BMP
[2023-07-19] MEDS: KCL 40 MEQ PO (05:42)
[2023-07-19] MEDS: PULMICORT INH (07:30)
[2023-07-19] MEDS: DUONEB INH (07:31)
[2023-07-19] MEDS: VIBRAMYCIN 100 MG PO ×2 (07:53→19:41)
[2023-07-19] MEDS: RISPERDAL 0.25 MG PO (07:53)
[2023-07-19] MEDS: MUCINEX 600 MG PO ×2 (07:53→19:40)
[2023-07-19] MEDS: LASIX 20 MG IV (07:54)
[2023-07-19] MEDS: KCL ELIXIR 40 MEQ PO ×2 (09:18→15:00)
[2023-07-19] MEDS: DELTASONE 30 MG PO (09:56)
[2023-07-19 10:01] LABS: Blood Urea Nitrogen 24 mg/dl (7-17); Carbon Dioxide 33 mmol/L (22-30); Chloride 95 mmol/L (98-107); Estimated Creatinine Clearance 38 ml/min; Glucose 157 mg/dl (70-99); Sodium 141 mmol/L (135-145); eGFR > 60.00
--- NOTE | 2023-07-19 10:41 | CM ---
Addendum entered by Fany Atkinson 07/19/23 14:37:
CM spoke with patients daughterElda, initial assessment completed. Patient resides at the [facility] in Assisted Living, has been there about three weeks. Daughter reports patient typically does not use any DME for ambulation, lately has seemed
more unsteady. CM discussed PT recommendation of home health, daughter agreeable for patient to start PT at [facility]. Daughter reports patient has been getting supplemental O2 at [facility]. Patient PCP Sneha Palma, pharmacy [facility]. CM will continue to follow for discharge planning needs.
Plan; return to [facility] with script for PT, awaiting return call from [facility].
Original Note:
Patient seen bedside. CM placed call to [facility] to speak to patients nurse to obtain patients prior level of functioning. CM left voicemail for nurse requesting a return call. PT recommending home health at this time. CM will continue to
follow for discharge planning needs.
Plan; return to [facility] with HH, awaiting return call from nurse to determine patients PLOF.
[2023-07-19] MEDS: DUONEB 3 ML INH ×3 (11:16→19:04)
--- NOTE | 2023-07-19 14:19 | W.PN.HOSP.TC ---
Today's Communication/Plan
-
cont iv diuresis
pred taper
echo
Assessment / Plan
Assessment / Plan
Physical Exam
General: Comfortable and Conversant
HEENT: Anicteric, Moist mucous membranes and Oxygen (Nasal Cannula)
Respiratory: Wheezes (Late expiratory wheeze, heard mostly anteriorly) and Non Labored Respirations
Cardiac: S1/S2 and Regular Rhythm
GI: Soft and Non Tender
Rectal: Deferred by Provider
Musculoskeletal: No Clubbing, No Cyanosis and No Edema
Skin: Warm and Dry
Neuro: Awake, Alert and Nonfocal/grossly intact
Psych: Calm
Acute Hypoxic Respiratory Insufficiency secondary to CHF Exacberation + Acute COPD Exacerbation
-Continue supplemental oxygen
-Prednisone taper can be continued
-Continue Pulmicort neb and Duoneb
-Continue IV lasix
-F/u ECHO
Dementia with behavioral disturbance
-Monitor for mood/behavior changes during hospitalization
-Continue Risperdal HS and add prn dose for increased agitation
-Per daughter patient does not respond well to Ativan or Haldol
Rheumatoid Arthritis
-Patient maintained on golimumab as outpatient
Hx Sjogren's Syndrome
DVT proph: Lovenox
Code Status: DNR
Anticipated Discharge: 24 - 48 hours
Subjective/Interval History
-
Date of Service: July 19, 2023
feels somewhat better
Objective Data
-
Labs:
Laboratory Results
07/19/23 07/19/23
04:18 09:16
WBC 6.1
Hgb 13.4
Hct 39.3
Plt Count 243 D
Sodium 140 141
Potassium 2.5 L* 3.0 L
Chloride 97 L 95 L
Carbon Dioxide 34 H 33 H
BUN 24 H 24 H
Creatinine 0.6 0.7
Glucose 155 H 157 H
Calcium 10.4 H 11.0 H
Vital Signs:
Vital Signs
Temp Pulse Resp BP Pulse Ox
97.7 F 79 18 124/80 99
07/19/23 11:00 07/19/23 11:20 07/19/23 11:20 07/19/23 11:00 07/19/23 11:20
I&O
07/18/23 07/19/23 07/20/23
06:59 06:59 06:59
Intake Total 240 / 240
Balance 240 / 240
Review of Systems
-
Unable to obtain full review of systems at this time due to: Dementia
Data Reviewed
-
Total Time Spent with Patient (in minutes): 45
Diagnostic Radiology: Image personally visualized and interpreted and Report Reviewed by me
Labs: Labs Reviewed by me
[2023-07-19] MEDS: LOVENOX 40 MG SC (17:04)
[2023-07-19] MEDS: PULMICORT 0.5 MG INH (19:04)
[2023-07-19] MEDS: RISPERDAL ORAL SOLUTION 0.25 MG PO (21:15)
[2023-07-20 03:47] VITALS: BP 151/88
[2023-07-20 06:00] VITALS: BMI 16.5
[2023-07-20 06:30] LABS: Hematocrit 40.5 % (37.0-47.0); Hemoglobin 13.1 g/dL (12.0-16.0); Mean Corp Hgb Conc. 32.3 g/dL (33.0-37.0); Mean Corpuscular Hgb 26.5 pg (27.0-31.0); Mean Platelet Volume 9.9 fL (7.4-10.4); Platelet Count 249 10^3/uL (130-400); Red Blood Cell Count 4.94 10^6/uL (4.20-5.40); Red Cell Dist. Width 14.4 % (11.5-14.5); White Blood Cell Count 11.2 10^3/uL (4.8-10.8)
[2023-07-20 07:03] LABS: ALT (SGPT) 24 U/L (0-35); AST (SGOT) 19 U/L (14-36); Albumin 3.4 g/dl (3.5-5.0); Alkaline Phosphatase 82 U/L (38-126); Blood Urea Nitrogen 31 mg/dl (7-17); Calcium 10.5 mg/dl (8.4-10.2); Carbon Dioxide 32 mmol/L (22-30); Chloride 102 mmol/L (98-107); Estimated Creatinine Clearance 44 ml/min; Glucose 86 mg/dl (70-99); Magnesium 2.2 mg/dl (1.6-2.3); Potassium 3.7 mmol/L (3.5-5.1); Sodium 137 mmol/L (135-145); Total Bilirubin 0.5 mg/dl (0.2-1.3); Total Protein 6.4 g/dl (6.3-8.2); eGFR > 60.00
[2023-07-20] MEDS: PULMICORT INH (07:33)
[2023-07-20] MEDS: DUONEB INH (07:33)
[2023-07-20 08:00] VITALS: BP 163/94
--- NOTE | 2023-07-20 09:30 | CM ---
Addendum entered by Angeles Armendariz 07/20/23 15:05:
TC from [facility]- referral placed.
Addendum entered by Angeles Armendariz 07/20/23 13:59:
TC to the [facility].
Spoke with floor Nurse Ray.
Prior to admission patient was able to ambulate with a RW from Room to Dining room, lastelay needed 2-3 rests between due to SOB.
Patient was saturating between 85-90%.
Patient can shower herself, but lately needing more help.
patient eats in the dining area.
Patient was not on oxygen prior to admission, but can return on oxygen if needed.
Patient will be able to get therapy with Dax Ardonab at the facility. Referral placed.
Per Ray prior to transfer back facility would like updated clinicals and therapy notes to review.
Ray (or nurse covering) P# [phone] , .
patient has a pendant necklace/alarm currently around her neck from the [facility], it is turner in color.
If patient does not return directly to the [facility] the family will need to drop the pendant off at the [facility].
Continue Oxygen weaning and IV diuresis.
Plan: Back to to the [facility] with Dax CORONADO when stable.
Original Note:
Left VM at the [facility] [phone], await for return call from nursing re prior level of function.
PT/OT recommending home care.
Patient continues on 5L of oxygen, IV diuresis, nebs and steroids.
Plan: Probable return to the [facility]
[2023-07-20] MEDS: VIBRAMYCIN 100 MG PO ×2 (09:49→19:58)
[2023-07-20] MEDS: LASIX 20 MG IV (09:49)
[2023-07-20] MEDS: MUCINEX 600 MG PO ×2 (09:49→19:58)
[2023-07-20] MEDS: FLUSH (NSS) 1 FLUSH IV (09:56)
[2023-07-20] MEDS: SOLU-MEDROL PF 60 MG IV ×2 (09:59→18:36)
[2023-07-20] MEDS: DELTASONE PO (10:21)
[2023-07-20] MEDS: DUONEB 3 ML INH ×3 (11:12→19:14)
--- NOTE | 2023-07-20 11:17 | PTOTSP ---
ST Acute Care Evaluation
Pt presents with fairly functional oropharyngeal and esophageal parameters that are safe for PO intake of all solids and liquids. Pt is at an increased risk for aspiration given acute respiratory distress, occasional increased respiratory demands
and RR, as well as increased need to coordinate breathing and swallowing. Pt encouraged to choose softer foods that require less mastication for energy conservation purposes.
Recommendations:
- Regular solids (choose softer options, or take small bites); thin liquids; meds as tolerated.
- General aspiration precautions: HOB fully upright with PO intake, do not eat/drink when acutely short of breath, eat/drink slowly.
- WATCH PARTS INSPECTOR will f/u briefly to ensure adequate recall and implementation of aspiration precautions.
[2023-07-20 11:29] VITALS: BP 130/91
--- NOTE | 2023-07-20 13:12 | PN.CDI ---
CDI
- -
CDI:
Physician Documentation Request
Admit Date: 07/18/23 21:07
Dear Doctor Rod
Patient presents to ED complaining of 'several days of shortness of breath and cough productive of thick white mucus. Daughter reports her breathing is gradually gotten worse and worse'
Exam in ED states 'Patient arrives with moderate to severe shortness of breath... Significant work of breathing'
Documented vital signs show patient on 5 L of oxygen
ED list 'COPD exacerbation, Acute hypoxic respiratory failure' as discharge problem.
H&P and hospitalist progress notes state 'Acute Hypoxic Respiratory Insufficiency'
In an attempt to clarify potential conflicting documentation, please clarify which of the following accurately represents the patient's respiratory status:
Acute respiratory failure
Hypoxia
Other
Additional information for Respiratory Failure:
Recognized criteria for Respiratory Failure (Source: [facility] Hospitalist Jan 2013)
ABGs: (1 or more) Symptoms Please indicate type if known
1. p)2 <60 or RA SPO2 <91% on RA 1. Tachypnea, SOB, dyspnea Hypoxic
2. pCO2 50 and pH <7.35 2. Use of accessory muscles Hypercapnic
3. pO2 decrease of pCO2 increase by 3. Pallor or cyanosis Hypoxic and Hypercapnic
10 mmHg from baseline if known 4. Anxiety or restlessness Unable to determine
5. Unable to speak in full sentences
Supplemental O2 of > 40% (5LPM) Intubation is not required
Use of terms such as suspected, likely, concern for, or probable (associated with a specific diagnosis that is being evaluated, monitored, or treated as if it exists) are acceptable and can be coded in the inpatient setting, when documented at the
time of discharge.
Thank you,
Wendi Gonzales RN, BSN
CDI Specialist
tiger text
Please use your independent medical judgment in providing your response.
--- NOTE | 2023-07-20 14:25 | W.PN.HOSP.TC ---
Today's Communication/Plan
-
iv steroids
iv lasix
wean o2
Assessment / Plan
Assessment / Plan
Physical Exam
General: Comfortable and Conversant
HEENT: Anicteric, Moist mucous membranes and Oxygen (Nasal Cannula)
Respiratory: Wheezes (Late expiratory wheeze, heard mostly anteriorly) and Non Labored Respirations
Cardiac: S1/S2 and Regular Rhythm
GI: Soft and Non Tender
Rectal: Deferred by Provider
Musculoskeletal: No Clubbing, No Cyanosis and No Edema
Skin: Warm and Dry
Neuro: Awake, Alert and Nonfocal/grossly intact
Psych: Calm
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
-Continue supplemental oxygen - wean as tolerated
-Solumedrol started - wean quickly if possible
-Continue Pulmicort neb and Duoneb
-Continue IV lasix
-F/u ECHO - EF 50-55%
-CXR in AM
Dementia with behavioral disturbance
-Monitor for mood/behavior changes during hospitalization
-Continue Risperdal HS and add prn dose for increased agitation
-Per daughter patient does not respond well to Ativan or Haldol
Rheumatoid Arthritis
-Patient maintained on golimumab as outpatient
Hx Sjogren's Syndrome
DVT proph: Lovenox
Code Status: DNR
Anticipated Discharge: 24 - 48 hours
Subjective/Interval History
-
Date of Service: July 20, 2023
respiratory status appears improved
Objective Data
-
Labs:
Laboratory Results
07/20/23
05:13
WBC 11.2 H
Hgb 13.1
Hct 40.5
Plt Count 249
Sodium 137
Potassium 3.7
Chloride 102
Carbon Dioxide 32 H
BUN 31 H
Creatinine 0.5 L
Glucose 86
Calcium 10.5 H
Total Bilirubin 0.5
AST 19
ALT 24
Alkaline Phosphatase 82
Vital Signs:
Vital Signs
Temp Pulse Resp BP Pulse Ox
98.2 F 74 24 130/91 100
07/20/23 11:29 07/20/23 11:29 07/20/23 11:29 07/20/23 11:29 07/20/23 11:29
I&O
07/19/23 07/20/23 07/21/23
06:59 06:59 06:59
Intake Total 240 / 240 1230 / 1230
Balance 240 / 240 1230 / 1230
Review of Systems
-
Unable to obtain full review of systems at this time due to: Dementia
Data Reviewed
-
Total Time Spent with Patient (in minutes): 45
Diagnostic Radiology: Image personally visualized and interpreted and Report Reviewed by me
Labs: Labs Reviewed by me
[2023-07-20 15:00] VITALS: BP 148/74
[2023-07-20] MEDS: LOVENOX 40 MG SC (18:36)
[2023-07-20] MEDS: FLUSH (NSS) 2 FLUSH IV (18:38)
[2023-07-20] MEDS: PULMICORT 0.5 MG INH (19:14)
[2023-07-20 19:25] VITALS: BP 131/80
[2023-07-20] MEDS: RISPERDAL ORAL SOLUTION 0.25 MG PO (22:29)
[2023-07-20 23:03] VITALS: BP 126/68
[2023-07-21] VITALS (8 sets, daily range): BP systolic 130–151; BP diastolic 52–92; PULSE 81–97; O2SAT 92–95; BMI 16.3
[2023-07-21] MEDS: SOLU-MEDROL PF 60 MG IV ×2 (02:48→08:58)
[2023-07-21 07:04] LABS: Hematocrit 42.8 % (37.0-47.0); Hemoglobin 14.2 g/dL (12.0-16.0); Mean Corp Hgb Conc. 33.2 g/dL (33.0-37.0); Mean Corpuscular Hgb 26.5 pg (27.0-31.0); Mean Corpuscular Volume 79.9 fL (81.0-99.0); Mean Platelet Volume 9.5 fL (7.4-10.4); Platelet Count 311 10^3/uL (130-400); Red Blood Cell Count 5.36 10^6/uL (4.20-5.40); Red Cell Dist. Width 14.3 % (11.5-14.5); White Blood Cell Count 10.3 10^3/uL (4.8-10.8)
[2023-07-21 07:49] LABS: ALT (SGPT) 30 U/L (0-35); AST (SGOT) 22 U/L (14-36); Albumin 3.6 g/dl (3.5-5.0); Alkaline Phosphatase 92 U/L (38-126); Blood Urea Nitrogen 36 mg/dl (7-17); Calcium 10.6 mg/dl (8.4-10.2); Carbon Dioxide 30 mmol/L (22-30); Chloride 99 mmol/L (98-107); Estimated Creatinine Clearance 44 ml/min; Glucose 131 mg/dl (70-99); Sodium 136 mmol/L (135-145); Total Bilirubin 0.5 mg/dl (0.2-1.3); Total Protein 6.8 g/dl (6.3-8.2); eGFR > 60.00
[2023-07-21] MEDS: DUONEB 3 ML INH ×4 (08:02→20:12)
[2023-07-21] MEDS: PULMICORT 0.5 MG INH ×2 (08:02→20:12)
[2023-07-21] MEDS: LASIX 20 MG IV (08:55)
[2023-07-21] MEDS: VIBRAMYCIN 100 MG PO ×2 (08:57→20:44)
[2023-07-21] MEDS: MUCINEX 600 MG PO ×2 (08:57→20:44)
[2023-07-21] MEDS: DELTASONE 40 MG PO (10:19)
--- NOTE | 2023-07-21 12:12 | PN.CDI ---
CDI
- -
CDI:
Physician Documentation Request
Admit Date: 07/18/23 21:07
Dear Doctor Rafaela ,
07/18 note states 'During visit RD observed protrusion of clavical, temporal wasting and apparent ribs, calf muscle wasting. With weight loss of > 20% in 1 years and observed muscle and fat wasting pt meets AND/ASPEN criteria for severe protein
calorie malnutrition of chronic illness'
Ht 4 ft 9 inches,
Wt 80 lbs (07/17 17:12)
BMI 17.5
Based on the information, which of the following most accurately represents the patient's nutritional status?
Malnutrition (specify if mild, moderate or severe)
Cachexia without malnutrition
Underweight without malnutrition
No nutritional deficiency
Other (please specify)
Chaplin Criteria ([facility] Hospitalist 2017)
2 or more criteria must be present for either
non severe or severe malnutrition
Note that the criteria differs related to the
presence of an acute or chronic illness
Acute Illness Chronic Illness
Energy Intake Non Severe: <75% for >7 days Non Severe: <75% for >1 month
Severe: <50% for >5 days Severe: <75% for >1 month
Weight Loss Non Severe: 1-2% over 1 week Non Severe: 5% over 1 month
5% over 1 month 7.5% over 3 months
7.5% over 3 months 10% over 6 months
1 year N/A 20% over 1 year
Severe: >2% over 1 week Severe: >5% over 1 month
>5% over 1 month >7.5% over 3 months
>7.5% over 3 months >10% over 6 months
1 year N/A >20% over 1 year
Body Fat Non Severe: Mild Decrease Non Severe: Mild Loss
Severe: Moderate Decrease Severe: Severe Loss
Muscle Mass Non Severe: Mild Decrease Non Severe: Mild Loss
Severe: Moderate Decrease Severe: Severe Loss
Fluid Accumulation Non Severe: Mild Accumulation Non Severe: Mild Accumulation
Severe: Moderate to severe Severe: Moderate to severe
accumulation accumulation
Reduced Sales Development Specialist Strength Non Severe: N/A Non Severe: N/A
Severe: Measurably reduced Severe: Measurably reduced
Additional criteria that can be used to Determine if Mild or Moderate Malnutrition (Merck Manual 2018)
Mild Moderate Severe
Albumin gm/dl <3.0 gm/dl <2.5 gm/dl <2.0 gm/dl
Pre Albumin mg/dl <15 gm/dl <10 mg/dl <5.0 mg/dl
BMI <18.5 <17 <16
Use of terms such as suspected, likely, concern for, or probable (associated with a specific diagnosis that is being evaluated, monitored, or treated as if it exists) are acceptable and can be coded in the inpatient setting, when documented at the
time of discharge.
Thank you,
Wendi Gonzales RN, BSN
CDI Specialist
tiger text
Please use your independent medical judgment in providing your response.
--- NOTE | 2023-07-21 12:29 | PN.CDI ---
CDI
- -
CDI:
Physician Documentation Request
Admit Date: 07/18/23 21:07
Dear Doctor Rod,
H&P states 'No JVD/leg edema. Clinically doubt CHF and her BNP not elevated for her age. Chest x-ray interestingly raises concern for pulmonary edema including mention of curly B-lines '
07/19 progress note states 'Acute Hypoxic Respiratory Insufficiency secondary to Acute HFmrEF + Acute COPD Exacerbation'
In an attempt to clarify potential conflicting documentation, please clarify:
Acute HFmrEF
CHF ruled out
Other
Use of terms such as suspected, likely, concern for, or probable (associated with a specific diagnosis that is being evaluated, monitored, or treated as if it exists) are acceptable and can be coded in the inpatient setting, when documented at the
time of discharge.
Thank you,
Wendi Gonzales RN, BSN
CDI Specialist
tiger text
Please use your independent medical judgment in providing your response.
--- NOTE | 2023-07-21 14:03 | W.PN.HOSP.TC ---
Today's Communication/Plan
-
switch to pred taper
switch to po lasix in 24-48 hours
Assessment / Plan
Assessment / Plan
Physical Exam
General: Comfortable and Conversant
HEENT: Anicteric, Moist mucous membranes and Oxygen (Nasal Cannula)
Respiratory: Wheezes (Late expiratory wheeze, heard mostly anteriorly) and Non Labored Respirations
Cardiac: S1/S2 and Regular Rhythm
GI: Soft and Non Tender
Rectal: Deferred by Provider
Musculoskeletal: No Clubbing, No Cyanosis and No Edema
Skin: Warm and Dry
Neuro: Awake, Alert and Nonfocal/grossly intact
Psych: Calm
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
-Continue supplemental oxygen - wean as tolerated
switch to prednisone taper
-Continue Pulmicort neb and Duoneb
-Continue IV lasix for today - possible transition to PO in 24 hours
-F/u ECHO - EF 50-55%
-CXR showing improvement
Dementia with behavioral disturbance
-Monitor for mood/behavior changes during hospitalization
-Continue Risperdal HS and add prn dose for increased agitation
-Per daughter patient does not respond well to Ativan or Haldol
Rheumatoid Arthritis
-Patient maintained on golimumab as outpatient
Hx Sjogren's Syndrome
DVT proph: Lovenox
Code Status: DNR
Anticipated Discharge: Within 24 hours
Subjective/Interval History
-
Date of Service: July 21, 2023
Appears better, wheezing resolved although did drop to 88% on ambulation
Objective Data
-
Labs:
Laboratory Results
07/21/23
06:23
WBC 10.3
Hgb 14.2
Hct 42.8
Plt Count 311 D
Sodium 136
Potassium 4.0
Chloride 99
Carbon Dioxide 30
BUN 36 H
Creatinine 0.5 L
Glucose 131 H
Calcium 10.6 H
Total Bilirubin 0.5
AST 22
ALT 30
Alkaline Phosphatase 92
Vital Signs:
Vital Signs
Temp Pulse Resp BP Pulse Ox
97.9 F 81 18 132/75 95
07/21/23 11:00 07/21/23 11:00 07/21/23 11:00 07/21/23 11:00 07/21/23 11:30
I&O
07/20/23 07/21/23 07/22/23
06:59 06:59 06:59
Intake Total 1230 / 1230 360 / 360
Balance 1230 / 1230 360 / 360
Review of Systems
-
History Source: Patient
All other systems: Not reviewed unless documented
Physical Exam
-
General: No Apparent Distress and Cachectic
HEENT: Negative Oxygen
Respiratory: Negative Wheezes
Cardiac: Regular Rhythm and S1/S2; Negative Murmur
GI: Soft, Nontender and Nondistended
Neuro: Awake, Alert and No Motor Deficits
Psych: Calm
Data Reviewed
-
Total Time Spent with Patient (in minutes): 45
Diagnostic Radiology: Image personally visualized and interpreted and Report Reviewed by me
Labs: Labs Reviewed by me
[2023-07-21] MEDS: LOVENOX 40 MG SC (17:07)
[2023-07-21] MEDS: RISPERDAL ORAL SOLUTION 0.25 MG PO (22:15)
[2023-07-22] VITALS (8 sets, daily range): BP systolic 114–157; BP diastolic 73–92; PULSE 84; O2SAT 86–94; BMI 16.5
[2023-07-22] MEDS: DUONEB 3 ML INH ×4 (07:26→18:23)
[2023-07-22] MEDS: PULMICORT 0.5 MG INH ×2 (07:26→18:23)
[2023-07-22 08:16] LABS: Hematocrit 41.4 % (37.0-47.0); Hemoglobin 13.9 g/dL (12.0-16.0); Mean Corp Hgb Conc. 33.6 g/dL (33.0-37.0); Mean Corpuscular Hgb 26.6 pg (27.0-31.0); Mean Corpuscular Volume 79.3 fL (81.0-99.0); Mean Platelet Volume 9.9 fL (7.4-10.4); Platelet Count 308 10^3/uL (130-400); Red Blood Cell Count 5.22 10^6/uL (4.20-5.40); Red Cell Dist. Width 14.1 % (11.5-14.5); White Blood Cell Count 10.5 10^3/uL (4.8-10.8)
[2023-07-22] MEDS: DELTASONE 40 MG PO (08:37)
[2023-07-22] MEDS: MUCINEX 600 MG PO ×2 (08:38→19:53)
[2023-07-22] MEDS: VIBRAMYCIN 100 MG PO ×2 (08:38→19:53)
[2023-07-22] MEDS: LASIX 20 MG IV (08:38)
[2023-07-22 08:57] LABS: ALT (SGPT) 21 U/L (0-35); AST (SGOT) 17 U/L (14-36); Albumin 3.2 g/dl (3.5-5.0); Alkaline Phosphatase 86 U/L (38-126); Blood Urea Nitrogen 33 mg/dl (7-17); Calcium 10.7 mg/dl (8.4-10.2); Carbon Dioxide 32 mmol/L (22-30); Chloride 98 mmol/L (98-107); Estimated Creatinine Clearance 44 ml/min; Glucose 90 mg/dl (70-99); Potassium 3.4 mmol/L (3.5-5.1); Sodium 136 mmol/L (135-145); Total Bilirubin 0.5 mg/dl (0.2-1.3); Total Protein 6.2 g/dl (6.3-8.2); eGFR > 60.00
[2023-07-22] MEDS: KCL ELIXIR 40 MEQ PO (10:30)
--- NOTE | 2023-07-22 11:42 | CM ---
Addendum entered by Tori Kelley 07/22/23 15:14:
Patient's daughter states that she reached out to the [facility] and they have agreed to accept patient back yo the [facility] on Monday, patient will need oxygen set up and delivered to hospital in order for patient to be
discharged.
Addendum entered by Tori Kelley 07/22/23 12:53:
luncheonette manager spoke with respiratory who expressed concerns regarding patient ambulating with oxygen after discharge, and cyanide case hardener reached out to physical therapy and spoke with patient's daughter and she has agreed to skilled placement and their
first choice is [facility] referral sent to Mika Forde for skilled placement.
Original Note:
luncheonette manager reviewed patient's chart and met with patient and patient to return to [facility] today, patient to have home oxygen evaluation completed. luncheonette manager is waiting on testing. luncheonette manager spoke with Salvador at [facility] and provided updated. Patient has also been set up with [facility].
[facility]
Report [phone]

[facility]
[place] [phone]
--- NOTE | 2023-07-22 13:21 | W.PN.HOSP.TC ---
Addendum entered and electronically signed by Riky Velasco MD 07/22/23 15:48:
Acute respiratory failure - improved although most likely will need o2 on dc
Acute HFmrEF
Malnutrition
Addendum entered and electronically signed by Riky Velasco MD 07/22/23 15:27:
plan is back to the [facility] on Monday with oxygen at home rehab and [facility] care visiting nurses
Original Note:
Today's Communication/Plan
-
cont lasix today
prednisone taper
home o2 eval
pt/ot eval for dispo
Assessment / Plan
Assessment / Plan
Physical Exam
General: Comfortable and Conversant
HEENT: Anicteric, Moist mucous membranes and Oxygen (Nasal Cannula)
Respiratory: Wheezes (Late expiratory wheeze, heard mostly anteriorly) and Non Labored Respirations
Cardiac: S1/S2 and Regular Rhythm
GI: Soft and Non Tender
Rectal: Deferred by Provider
Musculoskeletal: No Clubbing, No Cyanosis and No Edema
Skin: Warm and Dry
Neuro: Awake, Alert and Nonfocal/grossly intact
Psych: Calm
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
-Continue supplemental oxygen - wean as tolerated
- prednisone taper
-Continue Pulmicort neb and Duoneb
-Continue IV lasix for today - possible transition to PO in 24 to 48 hours
-O2 ambulation eval
-repeat cxr showing pulm edema improvement although has severe emphysematous changes
� Goal saturation greater than 88%
-F/u ECHO - EF 50-55%
-Will need to f/u with pulm outpatient
Dementia with behavioral disturbance
-Monitor for mood/behavior changes during hospitalization
-Continue Risperdal HS and add prn dose for increased agitation
-Per daughter patient does not respond well to Ativan or Haldol
-PT/OT eval - may need to dced to facility
Hypokalemia
-monitor and replete
Rheumatoid Arthritis
-Patient maintained on golimumab as outpatient
Hx Sjogren's Syndrome
DVT proph: Lovenox
Code Status: DNR
Anticipated Discharge: 24 - 48 hours
Subjective/Interval History
-
Date of Service: July 22, 2023
patient winded with walking, assessing for o2 upon ambulation. Feels much better
Objective Data
-
Labs:
Laboratory Results
07/22/23
07:19
WBC 10.5
Hgb 13.9
Hct 41.4
Plt Count 308
Sodium 136
Potassium 3.4 L
Chloride 98
Carbon Dioxide 32 H
BUN 33 H
Creatinine 0.5 L
Glucose 90
Calcium 10.7 H
Total Bilirubin 0.5
AST 17
ALT 21
Alkaline Phosphatase 86
Vital Signs:
Vital Signs
Temp Pulse Resp BP Pulse Ox
97.8 F 83 16 133/80 92
07/22/23 11:35 07/22/23 11:35 07/22/23 11:35 07/22/23 11:35 07/22/23 12:00
I&O
07/21/23 07/22/23 07/23/23
06:59 06:59 06:59
Intake Total 360 / 360 1560 / 1560
Balance 360 / 360 1560 / 1560
Review of Systems
-
History Source: Patient
All other systems: Not reviewed unless documented
Physical Exam
-
General: No Apparent Distress and Cachectic
HEENT: Negative Oxygen
Respiratory: Negative Wheezes
Cardiac: Regular Rhythm and S1/S2; Negative Murmur
GI: Soft, Nontender and Nondistended
Neuro: Awake, Alert and No Motor Deficits
Psych: Calm
Data Reviewed
-
Total Time Spent with Patient (in minutes): 45
Diagnostic Radiology: Image personally visualized and interpreted and Report Reviewed by me
Labs: Labs Reviewed by me
[2023-07-22] MEDS: RISPERDAL 0.25 MG PO (14:02)
[2023-07-22] MEDS: LOVENOX 40 MG SC (17:34)
[2023-07-22] MEDS: RISPERDAL ORAL SOLUTION 0.25 MG PO (22:01)
[2023-07-23 03:00] VITALS: BP 139/83
[2023-07-23 06:00] VITALS: BMI 16.5
[2023-07-23] MEDS: DUONEB 3 ML INH ×4 (07:27→17:54)
[2023-07-23 07:29] VITALS: BP 124/80
[2023-07-23 07:54] LABS: Hematocrit 42.1 % (37.0-47.0); Hemoglobin 13.5 g/dL (12.0-16.0); Mean Corp Hgb Conc. 32.1 g/dL (33.0-37.0); Mean Corpuscular Hgb 26.3 pg (27.0-31.0); Mean Corpuscular Volume 81.9 fL (81.0-99.0); Mean Platelet Volume 9.8 fL (7.4-10.4); Platelet Count 300 10^3/uL (130-400); Red Blood Cell Count 5.14 10^6/uL (4.20-5.40); Red Cell Dist. Width 14.2 % (11.5-14.5); White Blood Cell Count 7.5 10^3/uL (4.8-10.8)
[2023-07-23 08:19] LABS: ALT (SGPT) 22 U/L (0-35); AST (SGOT) 17 U/L (14-36); Albumin 3.1 g/dl (3.5-5.0); Alkaline Phosphatase 79 U/L (38-126); Blood Urea Nitrogen 30 mg/dl (7-17); Calcium 10.2 mg/dl (8.4-10.2); Carbon Dioxide 37 mmol/L (22-30); Chloride 96 mmol/L (98-107); Estimated Creatinine Clearance 44 ml/min; Glucose 76 mg/dl (70-99); Potassium 3.4 mmol/L (3.5-5.1); Sodium 134 mmol/L (135-145); Total Bilirubin 0.7 mg/dl (0.2-1.3); Total Protein 6.1 g/dl (6.3-8.2); eGFR > 60.00
[2023-07-23] MEDS: DELTASONE 40 MG PO (08:56)
[2023-07-23] MEDS: VIBRAMYCIN 100 MG PO (08:56)
[2023-07-23] MEDS: MUCINEX 600 MG PO ×2 (08:57→20:58)
[2023-07-23] MEDS: LASIX 20 MG IV (08:57)
--- NOTE | 2023-07-23 10:08 | CM ---
Patient from [facility] with Dx Acute Hypoxic Respiratory Insufficiency, Acute HF, Acute COPD Exacerbation, dementia. O2 2L. Home O2 Assessment yesterday. PT; unsteady on feet, recommends HH. OT recommends 24 hour assistance. Per
nurse assessment; confused.
Spoke with Alexandra, DON [facility]; they are able to accept the patient back tomorrow. Alexandra would like [facility] VN setup with [facility]. She was made aware home O2 was ordered through [employer].
Spoke with patient's daughter Elda; she agrees with her mother returning to [facility] tomorrow by ambulance. IMM completed. Daughter does not feel comfortable with transport by car and CM agrees. Elda is aware VN is set up and that home O2
will be ordered through [employer] - she would like to be the contact for the O2 so they can show her how to use the portable tank as she will be transporting her mother to her appointments.
Spoke with Chung Mauricio; referral faxed for d/c tomorrow. Luly confirms home O2 assessment done on 07/21 is good until tomorrow. She is aware MD will confirm O2 liter flow and if continuous/with exertion. Provided daughter Elda phone as
contact.
Plan home tomorrow by ambulance, with home O2 through [employer], with [facility] & [facility].
[2023-07-23 11:15] VITALS: BP 106/74
--- NOTE | 2023-07-23 11:52 | W.PN.HOSP.TC ---
Today's Communication/Plan
-
switch to po pred 30mg taper
switch to po lasix
home o2 documented
DC ready; CM aware - tentative dc to facility tomorrow
Assessment / Plan
Assessment / Plan
Physical Exam
General: Comfortable and Conversant
HEENT: Anicteric, Moist mucous membranes and Oxygen (Nasal Cannula)
Respiratory: Wheezes (Late expiratory wheeze, heard mostly anteriorly) and Non Labored Respirations
Cardiac: S1/S2 and Regular Rhythm
GI: Soft and Non Tender
Rectal: Deferred by Provider
Musculoskeletal: No Clubbing, No Cyanosis and No Edema
Skin: Warm and Dry
Neuro: Awake, Alert and Nonfocal/grossly intact
Psych: Calm
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
-Continue supplemental oxygen - wean as tolerated
- prednisone taper - switch to 30mg daily tomorrow
-Continue Pulmicort neb and Duoneb
-Transition IV lasix to PO 20mg lasix today - monitong bmp outpatient
-repeat cxr showing pulm edema improvement although has severe emphysematous changes
� Goal saturation greater than 88%
-F/u ECHO - EF 50-55%
-Will need to f/u with pulm outpatient
-Received >5 days of doxy - can dc
Patient is in need of oxygen at 2 liters/minute via nasal cannula continuously due to pulse oximetry of 86% on room air at rest. Oxygen will help to improve hypoxemia. Patient is mobile within the home. DuoNeb therapy has been tried and is
ineffective in treating hypoxemia related symptoms. Oxygen is needed to improve symptoms.
Dementia with behavioral disturbance
-Monitor for mood/behavior changes during hospitalization
-Continue Risperdal HS and add prn dose for increased agitation
-Per daughter patient does not respond well to Ativan or Haldol
-PT/OT eval - DC to [facility] with Home o2 tentatively tomorrow
Hypokalemia
-monitor and replete
Rheumatoid Arthritis
-Patient maintained on golimumab as outpatient
Hx Sjogren's Syndrome
DVT proph: Lovenox
Code Status: DNR
Anticipated Discharge: Within 24 hours
Subjective/Interval History
-
Date of Service: July 23, 2023
no acute events,feels better
Objective Data
-
Labs:
Laboratory Results
07/23/23
06:41
WBC 7.5
Hgb 13.5
Hct 42.1
Plt Count 300
Sodium 134 L
Potassium 3.4 L
Chloride 96 L
Carbon Dioxide 37 H
BUN 30 H
Creatinine 0.5 L
Glucose 76
Calcium 10.2
Total Bilirubin 0.7
AST 17
ALT 22
Alkaline Phosphatase 79
Vital Signs:
Vital Signs
Temp Pulse Resp BP Pulse Ox
97.6 F 74 19 139/83 97
07/23/23 07:29 07/23/23 08:57 07/23/23 07:30 07/23/23 08:57 07/23/23 07:30
I&O
07/22/23 07/23/23 07/24/23
06:59 06:59 06:59
Intake Total 1560 / 1560 1200 / 1200 240 / 240
Balance 1560 / 1560 1200 / 1200 240 / 240
Review of Systems
-
History Source: Patient
All other systems: Not reviewed unless documented
Data Reviewed
-
Total Time Spent with Patient (in minutes): 45
Diagnostic Radiology: Image personally visualized and interpreted and Report Reviewed by me
Labs: Labs Reviewed by me
[2023-07-23] MEDS: KCL ELIXIR 40 MEQ PO (12:36)
[2023-07-23 15:23] VITALS: BP 114/69
[2023-07-23] MEDS: LOVENOX 40 MG SC (17:26)
[2023-07-23 19:00] VITALS: BP 117/83
[2023-07-23] MEDS: RISPERDAL ORAL SOLUTION 0.25 MG PO (20:59)
[2023-07-23 23:00] VITALS: BP 102/72
[2023-07-24] MEDS: RISPERDAL 0.25 MG PO ×2 (02:11→16:39)
[2023-07-24 03:00] VITALS: BP 114/72
--- NOTE | 2023-07-24 05:23 | W.PN.UPDATE ---
Update Note
Progress Note Update
Pt agitated this am and wouldn't go back to bed.
Risperidone given at 0200
Restraints were ordered but pt able to eventually calm and were NEVER needed. Order cancelled
--- NOTE | 2023-07-24 05:53 | W.PN.HOSP.TC ---
Addendum entered and electronically signed by Christi Cruz MD 07/26/23 07:22:
Possible acute on chronic HFpEF diastolic (less likely relatively low BNP)
Addendum entered and electronically signed by Christi Cruz MD 07/24/23 11:56:
Hypercalcemia, improving, possibly due to home Calcium supplementation recommended to continue to hold for now along with Vit D supplementation.
Outpatient follow up with primary recommended.
Original Note:
Today's Communication/Plan
-
discharge
Assessment / Plan
Assessment / Plan
Physical Exam
General: Comfortable and Conversant
HEENT: Anicteric, Moist mucous membranes and Oxygen (Nasal Cannula)
Respiratory: Clear to auscultation bilateral.
Cardiac: S1/S2 and Regular Rhythm
GI: Soft and Non Tender
Musculoskeletal: No Clubbing, No Cyanosis and No Edema
Skin: Warm and Dry
Neuro: Awake, Alert, Conversant, Coherent
Psych: Calm
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
-Continue supplemental oxygen - wean as tolerated
- prednisone taper - 30mg daily, to reduce by 10 mg every two days following discharge till finish.
-Continue home inhalers on discharge
-Transitioned IV lasix to PO 20mg lasix, will convert to prn on discharge with associate potassium supplementation to be administered in conjunction prevention hypokalemia.
-repeat cxr showing pulm edema improvement although has severe emphysematous changes, follows at [facility], local pulm follow up provided per patient's daughter's request
� Goal saturation greater than 88%
-F/u ECHO - EF 50-55% no significant change prior ECHO September 2022
-Completed 5 days doxy, discontinued
Patient is in need of oxygen at 2 liters/minute via nasal cannula continuously due to pulse oximetry of 86% on room air at rest. Oxygen will help to improve hypoxemia. Patient is mobile within the home. DuoNeb therapy has been tried and is
ineffective in treating hypoxemia related symptoms. Oxygen is needed to improve symptoms.
Dementia with behavioral disturbance
-Monitor for mood/behavior changes during hospitalization
-Continue Risperdal HS and add prn dose for increased agitation
-Per daughter patient does not respond well to Ativan or Haldol
-PT/OT eval - appreciated home services
Hypokalemia likely 2/2 to diuresis
-monitor and replete
-20 mEQ K to be prescribed, to be used in conjunction with prn diuretic as above
Rheumatoid Arthritis
-Patient maintained on golimumab as outpatient
Hx Sjogren's Syndrome
DVT proph: Lovenox
Code Status: DNR
Medically stable for discharge back to [facility] with home services, oxygen, and outpatient follow up recommendations.
Discussed with patient and her daughter Elda MCCLELLAND
Total Time Preparing Discharge ___50____ minutes including examination of the patient, summary of the hospital stay, instructions for continuing care to all relevant caregivers; and preparation of discharge records, prescriptions, and referral
forms if necessary.
Anticipated Discharge: Today
Subjective/Interval History
-
Date of Service: July 24, 2023
Seen and examined at bedside, overnight events noted agitation requiring prn risperidone once. Patient since calm cooperative not requiring restraints. Awake conversant.
Objective Data
-
Labs:
Laboratory Results
07/24/23
06:00
WBC Pending
Hgb Pending
Hct Pending
Plt Count Pending
Vital Signs:
Vital Signs
Temp Pulse Resp BP Pulse Ox
98.3 F 78 14 114/72 92
07/24/23 03:00 07/24/23 03:00 07/24/23 03:00 07/24/23 03:00 07/24/23 03:00
I&O
07/22/23 07/23/23 07/24/23
06:59 06:59 06:59
Intake Total 1560 / 1560 1200 / 1200 240 / 240
Balance 1560 / 1560 1200 / 1200 240 / 240
[2023-07-24 07:00] VITALS: BP 107/67
[2023-07-24] MEDS: DUONEB 3 ML INH ×3 (07:35→18:29)
[2023-07-24 08:01] LABS: Hematocrit 44.4 % (37.0-47.0); Hemoglobin 14.1 g/dL (12.0-16.0); Mean Corp Hgb Conc. 31.8 g/dL (33.0-37.0); Mean Corpuscular Hgb 26.2 pg (27.0-31.0); Mean Corpuscular Volume 82.4 fL (81.0-99.0); Mean Platelet Volume 9.6 fL (7.4-10.4); Platelet Count 283 10^3/uL (130-400); Red Blood Cell Count 5.39 10^6/uL (4.20-5.40); Red Cell Dist. Width 14.2 % (11.5-14.5); White Blood Cell Count 8.7 10^3/uL (4.8-10.8)
[2023-07-24] MEDS: LASIX 20 MG PO (08:58)
[2023-07-24] MEDS: DELTASONE 30 MG PO (08:58)
[2023-07-24] MEDS: MUCINEX 600 MG PO (08:58)
--- NOTE | 2023-07-24 09:31 | CM ---
Addendum entered by Yohana Collier 07/24/23 13:29:
Update called to patient daughter, made aware of ambulance picket [employer] and pending O2 delivery at the facility between -.
Addendum entered by Yohana Collier 07/24/23 13:24:
please fax clinicals to [facility] at [phone], [facility] at [phone], as well as [facility] at [phone]
Addendum entered by Yohana Collier 07/24/23 13:20:
[facility] spoke with CM and update provided that patient for discharge today. requested fax of discharge summary.
Original Note:
Patient seen at bedside with daughter. Patient for transfer to [facility] today. Patient had prn risperidone this am, physician unwilling to discharge today.CM called and spoke with daughter who hopes patient could still return to [facility]. IMM
completed 07/22 and plan is for ambulance transfer due to agitation and home O2 new. CM will continue to follow for discharge planning needs.
Plan; return to [facility] with home O2 from [facility].
[2023-07-24 11:00] VITALS: BP 118/74
[2023-07-24] MEDS: KCL 40 MEQ PO (11:05)
[2023-07-24] MEDS: DUONEB INH (11:10)
[2023-07-24 12:26] VITALS: BMI 16.5
--- NOTE | 2023-07-24 12:32 | W.DCSUMMARY ---
Discharge Summary
Discharge Data
Date of Admission: 07/18/23
Date of Discharge: 07/24/23
-
Pending Results: No
Discharge Plan
-
Patient Disposition: Home with Home Care
Discharge Diagnosis/Procedures: Acute Hypoxic Respiratory Failure due to COPD exacerbation vs possible Acute on Chronic Heart Failure with Preserved Ejection Fraction, Hypokalemia likely 2/2 Diuresis, Dementia with Behavioral Disturbances,
Hypercalcemia resolving, Rheumatoid Arthritis
Condition: Fair
Diet: Regular
Additional Diets: Ensure Enlive Chocolate daily supplementation
Activity: As tolerated and With Walker
Driving Restrictions: No driving
Bathing Restrictions: None
Blood Work: Please repeat BMP and obtain Vit D level with primary care provider in 1 week of discharge.
Others Tests: Repeat Chest X-ray with primary care provider or rv service technician in 1 month of discharge.
Other Services: VN, PT and OT
Specialty Instructions: Weigh Daily- Call MD for wt gain/loss 3 lbs overnight/5 lbs in 1 week
Activity Restrictions/Additional Instructions:
Please follow up with primary care provider in 1 week of discharge and pulmonology in 2-4 weeks of discharge.
A short prednisone taper has been prescribed for COPD exacerbation:
30 mg daily for two days, then 20 mg daily for two days, then 10 mg daily for last two days.
Lasix as needed has been prescribed for potential acute on chronic heart failure with preserved ejection fraction. 20 mg Lasix daily as needed for weight gain 3lbs or more overnight or 5lbs or more in 1 week.
Potassium 20mg daily as needed has also been prescribed to be taken when taking Lasix as above. This is to prevent hypokalemia due to diuresis.
Calcium and Vitamin D supplementations have been placed on hold due to hypercalcemia, resolving. Please follow up with primary care provider for outpatient BMP and Vit D level in 1 week and discuss with primary care provider when safe to resume or
if necessary to resume Calcium and Vitamin D supplementation.
Please take medications as prescribed/recommended and follow up with primary care provider and/or other healthcare provider involved in your care for refills and/or further adjustments to your medication regimen as necessary.
Referrals:
Kimberley Powell, [Active] - in two to four weeks
Sneha Palma PA-C [Family Provider] - in one week
Prescriptions:
New
guaifenesin 600 mg Tablet Extended Release 12hr
600 mg PO Q12 7 Days Qty: 14 0RF
furosemide 20 mg Tablet
20 mg PO DAILY PRN (Reason: Weight gain) 30 Days Qty: 30 0RF
Rx Instructions:
weight gain 3lbs or more overnight or 5lbs or more in a week
potassium chloride 20 mEq tablet extended release
20 meq PO DAILY PRN (Reason: when taking lasix) Qty: 30 0RF
Rx Instructions:
To be taken when taking Lasix to prevent hypokalemia
prednisone 10 mg Tablet
See Rx Instructions .ROUTE .COMPLEX Qty: 12 0RF
Rx Instructions:
Take By Mouth:
30 mg daily x2 days, 20 mg daily x2 days,
10 mg daily x2 days, then stop
Continued
Combivent Respimat 20-100 mcg/actuation mist
1 puff INHALATION R Q4HPRN PRN (Reason: copd/sob)
ibuprofen 200 mg Tablet
400 mg PO Q4HPRN PRN (Reason: mild pain)
loratadine 10 mg Tablet
10 mg PO DAILY PRN (Reason: allergies)
Prolia 60 mg/mL Syringe
60 mg SC [id number]
Simponi ARIA 12.5 mg/mL Solution
12.5 mg IV Q8W
Breztri Aerosphere 160-9-4.8 mcg/actuation Hfa Aerosol Inhaler
2 inh INHALATION R BID
risperidone 1 mg/mL solution
0.25 mg PO HS
budesonide 0.5 mg/2 mL Suspension For Nebulization
0.5 mg INHALATION R BID
formoterol fumarate 20 mcg/2 mL Solution For Nebulization
2 ml INHALATION R BID
Yupelri 175 mcg/3 mL Solution For Nebulization
175 mcg INHALATION R DAILY
Held
cholecalciferol (vitamin D3) 50 mcg (2,000 unit) Tablet
50 mcg PO DAILY
Hold Instructions: Hold further supplementation at this time due to hypercalcemia. Follow up with primary care provider following repeat Lab work and Vit D level in 1 week to determine when safe to resume or if necessary to resume.
calcium carbonate [Calcium 600] 600 mg calcium (1,500 mg) Tablet
600 mg PO DAILY
Hold Instructions: Hold further supplementation at this time due to hypercalcemia. Follow up with primary care provider following repeat Lab work in 1 week to determine when safe to resume or if necessary to resume.
Discontinued
prednisone 10 mg Tablet
10 mg PO DIRECTED
Patient Comments:
07/18/2023, filled on 07/13/2023.
Rx Instructions:
07/18/2023, 30 mg x 3 days; 20 mg x 3 days; 10 mg x 3 days.
doxycycline hyclate 100 mg Tablet
100 mg PO Q12H
Patient Comments:
07/18/2023, filled on 07/13/2023 and is instructed to take one tablet Q12H for 10 days.
Discharge Orders:
Discharge Patient (As Directed); Ordered 07/24/23
Ordered By: Christi Cruz
Discharge Date and Time
Print Language: POLISH
[2023-07-24 15:00] VITALS: BP 117/75
[2023-07-24] MEDS: LOVENOX SC (16:57)
--- NOTE | 2023-07-25 09:39 | PN.CDI ---
CDI
- -
CDI:
Physician Documentation Request
Admit Date: 07/18/23 21:07
Dear Doctor Anthony
07/18-07/23 progress notes state 'Acute Hypoxic Respiratory Insufficiency secondary to Acute HFmrEF + Acute COPD Exacerbation'
Per H&P pt has no listed history of CHF nor does it appear they take a diuretic on the outpatient basis.
07/23 Discharge summary states ' Acute Hypoxic Respiratory Failure due to COPD exacerbation vs possible Acute on Chronic Heart Failure with Preserved Ejection Fraction,...'
In an attempt to clarify potential conflicting documentation please clarify the type and acuity of CHF you are evaluating, treating or monitoring.
Type Acuity
Systolic Acute
Diastolic Chronic
Combined Systolic/Diastolic Acute on Chronic
Other
Use of terms such as suspected, likely, concern for, or probable (associated with a specific diagnosis that is being evaluated, monitored, or treated as if it exists) are acceptable and can be coded in the inpatient setting, when documented at the
time of discharge.
Thank you,
Wendi Gonzales RN, BSN
CDI Specialist
tiger text
Please use your independent medical judgment in providing your response.
== END 2023-07-24 19:36 | disposition home health service (06) | DRG 291 ==
LOC: 4 WEST ACU 21:07
PROVIDERS: Internal Medicine; Physician Assistant Medical; ADMITTING PHYSICIAN Internal Medicine; ATTENDING PHYSICIAN Internal Medicine; EMERGENCY PHYSICIAN Emergency Medicine; FAMILY PHYSICIAN Physician Assistant Medical
DX: I50.33 Acute on chronic diastolic (congestive) heart failure (principal); J96.01 Acute respiratory failure with hypoxia; J44.1 Chronic obstructive pulmonary disease with (acute) exacerbation; F03.918 Unspecified dementia, unspecified severity, with other behavioral disturbance; E46 Unspecified protein-calorie malnutrition; Z68.1 Body mass index [BMI] 19.9 or less, adult; M06.9 Rheumatoid arthritis, unspecified; E87.6 Hypokalemia; I44.7 Left bundle-branch block, unspecified; M81.0 Age-related osteoporosis without current pathological fracture; E83.52 Hypercalcemia; M35.00 Sjogren syndrome, unspecified; Z66 Do not resuscitate; Z79.51 Long term (current) use of inhaled steroids; Z79.52 Long term (current) use of systemic steroids; Z87.891 Personal history of nicotine dependence; Z11.52 Encounter for screening for COVID-19
CPT/HCPCS: 71045; 80048; 80053; 83735; 83880; 84484; 85025; 85027; 87040; 87502; 87811; 92526; 92610; 93005; 93306; 94640; 94761; 96374; 97116; 97163; 97166; 97530; 97535; 99291